=== PATIENT | male | born 1940 | race Caucasian/White ===

== ENCOUNTER 2018-01-20 02:16 | Emergency (ER) | payer MEDICARE, SELFPAY ==
[2018-01-20 02:18] VITALS: BP 134/79; PULSE 85; RESP 20; TEMP 36.4; O2SAT 97; BMI 28.4
--- NOTE | 2018-01-20 02:35 | RAD_ITS ---
STUDY: X-RAY - ABDOMEN/PELVIS REASON FOR EXAM: Male, 77 years old. eeding tube placement 30 cc gastrografin was injected into feeding tube prior to image TECHNIQUE: Single AP view of the abdomen / pelvis. COMPARISON: None. FINDINGS: Normal visualized lung bases. The feeding tube is in good position. Contrast seen in the stomach and in the duodenum. There is an unremarkable bowel gas pattern. There is no demonstrated free abdominal air. The visualized liver, spleen and kidneys are grossly normal in size and morphology. Normal soft tissue structures. Normal visualized osseous structures. RAD/Abdomen Single View (Portable) IMPRESSION: The feeding tube is in good position. Contrast seen in the stomach and in the duodenum. Electronically Signed: Michelle Howard MD at 3:33 EDT Tel , Service support ,
--- NOTE | 2018-01-20 02:40 | ED.RN ---
dr spear at bedside replacing pt feeding tube. pt tolerates well.
--- NOTE | 2018-01-20 03:23 | ED.DCSUM_ITS ---
- ER Visit Summary Date of Service: 01/20/18 Chief Complaint: [Need for PEG tube replacement] History of Present Illness: The patient is a 77 M [presents to the emergency department with complaint of PEG tube falling out half an hour ago. Patient has a history of prior stroke and is nonverbal. History comes from the patient' s . Last time patient had the PEG tube replaced was in August 2017.] Physical Examination: [HEENT-PERRLA, EOMI. Cranial nerves II through XII grossly intact. TMs clear. Mucous membranes moist. No adenopathy. Cardiovascular-regular rate and rhythm without murmur or ectopy Lungs-clear to auscultation, chest wall stable without crepitus or subcu emphysema Abdomen-normoactive bowel sounds, soft, nontender, no rebound or rigidity, no peritoneal signs. PEG tube site with small amount of blood oozing. No signs of infection. Extremities-intact ?4, normal range of motion, normal pulses, atraumatic] Test Results: [Post PEG tube replacement KUB obtained with Gastrografin shows good placement of PEG tube in stomach.] Emergency Department Course and Treatment: [PEG tube was replaced with a 20 Slovak tube.] 6 cc of normal saline used to inflate balloon. Treatment Plan: [Discharged to home in stable condition] Disposition: [Discharge] Impression: [PEG tube replacement] This note was generated with ExecNote dictation software. It may contain incorrect words, spelling, and punctuation that were not noted in review of the chart prior to signing ED Disposition - Plan for ED Patient: Chief Complaint: General Illness Referrals: Peyman Rene III, MD [Primary Care Provider] -
--- NOTE | 2018-01-20 03:23 | ED.DEP ---
ED Disposition - Plan for ED Patient: Chief Complaint: General Illness Instructions: ED G Tube Replacement Referrals: Peyman Rene III, MD [Primary Care Provider] - As Needed
[2018-01-20 03:45] VITALS: RESP 18
== END 2018-01-20 03:46 | disposition home or self-care (01) ==
PROVIDERS: Emergency Provider Emergency Medicine; Family Provider Family Medicine; PCP Family Medicine
DX: Z43.1 Encounter for attention to gastrostomy (principal); I10 Essential (primary) hypertension; E78.00 Pure hypercholesterolemia, unspecified; Z85.46 Personal history of malignant neoplasm of prostate; Z86.73 Personal history of transient ischemic attack (TIA), and cerebral infarction without residual deficits
CPT/HCPCS: 43760; 74018; 99282

== ENCOUNTER 2018-03-15 13:00 | Outpatient (RCR) | payer MEDICARE, SELFPAY ==
--- NOTE | 2018-02-01 07:27 | HP.PTEVAL ---
Patient's Visit Information ONEAL GARIBAY is a 78 year old M referred to Physical Therapy by LUIS ALFREDO Hill NP.KSMITH with a diagnosis of Muscular weakness, generalized weaknes. Date of Evaluation: 01/30/18 Physical Therapist: Odell Baird - Visit Plan Frequency: 2x /Week Duration: 6 Weeks Plan: Start with cardio equipment, BLE strengthening, gait training for safety and efficency. Progress dynamic balance activities, txs safety and bed mobility independence. Stretch HS and hip flexors to allow for increased erect posture. - Subjective Subjective: Pt. is here today for his initial evaluation with diagnosis of muscular deconditioning and generalized weakness. Pt. has a history of CVA ~11 years ago. He has expressive aphasia as well. Pt. arrives today with spouse. Spouse reports pt. has been having more and more difficulty with getting around house, getting out of bed, transfering, and general mobility. Pt. uses a rollator at home, but tends to spend the most of his time in his chair. Spouse assists with bed mobility (uses hospital bed), txs, walking, showering. Pt. has 3 steps with 1 HR to enter home and this has become more and more difficult for to assist. She has also been having trouble with the pt. completing car txs. Pt. had previously been going to gym to ride bike, but stopped as it became too hard to get out. Pt. and spouse are hopeful that pt. can increase his strength in order to become more safe and independent at home and get back to gym. - Objective POSTURE: Pt. has FH, rounded shoulder, flexed posture in stance. Pt. required walker for stability in stance. Pt. pushes walker out in front on him and stands with flexed posture, able to correct with TCing. PALAPTION: Pt. has no pain throughout bilateral LEs. Pt. has no signs of edema throughout bilateral LEs. NEUROLOGICAL: Pt. has normal sensation throughout bilateral LEs. Pt. has 1+ achilles and patellar DTR bilaterally. Pt. is able to rise on heels and toes, more difficult with rising on toes, balance aide required. ROM: Pt. has normal ankle and knee ROM without incerase in symptoms. Pt. has normal hip ROM, but has tight HS bilaterally (60deg length in 90/90 positioning bilaterally). Pt. has tight hip flexors as well, might be contributiing to flexed posture. MMT: RLE- ankle 5/5 throughout; knee- ext 4/5, flexion 4/5, hip- flexion 4/5, abd 4/5, ext 4/5. LLE- ankle 5/5 throughout; knee- 4/5 throughout; hip- 4/5 throughout. GAIT: Pt. ambulated with FWW this date. Pt. walks with AD out in front of safe in unsafe pattern. Pt. has flexed posture, decreased step length and increased hip sway. Pt. is able to correct with TCing, but unable to maintain. Pt. was able to ambulate 32ft. with Huong to complete, to assist with increasing stability and to stay within ALAINA of AD. STAIRS: Pt. was able to negotiate 3 steps with 2 HR with Huong to complete. (pt. has 3 steps with 1 HR to enter home, spouse assists). - Balance Scores Tinetti Balance Score: 6 Tinetti Gait Score: 4 Tinetti Balance & Gait Score: 10 - Goals Goal 1:: Pt. to be I with HEP. Goal Time Frame: 4-6 Weeks Goal 2:: Pt. to have increased BLE strength by 1/2 grade of all effected musculature to increase ability to complete all functional mobility. Goal Time Frame: 4-6 Weeks Goal 3:: Pt. to ambulate 50+ feet with FWW/rollator JESSICA with increased safety allowing for increased independence with in home. Goal Time Frame: 4-6 Weeks Goal 4:: Pt. to complete sit to stand and pivot transfers with AD JESSICA with improved safety allowing for increased independence in home. Goal Time Frame: 4-6 Weeks Goal 5:: Pt. to have increased tinetti assessment to 18/28 indicating reduce risk for future falls. Goal Time Frame: 4-6 Weeks Goal 6:: Pt. to complete car txs into family car with SBA/Huong to complete to increase ease of going into community. - Rehabilitation Potential Physical Therapy Diagnosis: Pt. has signs and symptoms with progressive generalized weakness of BLEs effecting his ability to complete bed mobility, transfers, gait, and functional mobility safely. Pt. would benefit from PT to increase stability in stance, increase BLE strength, progress safety and ability to ambulate. Rehabilitation Potential: Fair - Anticipated Interventions Patient/Client Instruction: Educate patient on: Condition, Plan of Care, Risk Factors, Benefits of Fitness Program For the Purpose of:: To foster healthy habits, To improve decision making, To facilitate caregiver knowledge, To improve self management, To prevent re-injury, To improve ability to perform tasks related to life management, To improve tolerance to ADL's Therapeutic Exercise to Include: Strength training, Power training, Endurance training, Balance training, Body mechanics, Postural training, Flexibilty training, Gait and locomotor training, Passive ROM, Active ROM, Dynamic Lumbar Stabilization Thank you for the opportunity to evaluate your patient. For Medicare and Medicare HMO plans, please review the plan of care and approve it. It will need to be FAXED BACK to us at [phone] for Medicare purposes. Please let me know if there are questions or concerns regarding this plan of care. Physician Signature: Date:
--- NOTE | 2018-07-19 09:45 | HP.PTDCNRP_ITS ---
HP - Discharge Summary (1) - Patient Information ONEAL GARIBAY was seen in my office for initial evaluation on 01/30/18. The following Plan of Care was established for this patient: Initial Frequency: 2x /Week Initial Duration: 6 Weeks - Anticipated Interventions Patient/Client Instruction: Educate patient on: Condition, Plan of Care, Risk Factors, Benefits of Fitness Program For the Purpose of:: To foster healthy habits, To improve decision making, To facilitate caregiver knowledge, To improve self management, To prevent re-injury , To improve ability to perform tasks related to life management, To improve tolerance to ADL's Therapeutic Exercise to Include: Strength training, Power training, Endurance training, Balance training, Body mechanics, Postural training, Flexibilty training, Gait and locomotor training, Passive ROM, Active ROM, Dynamic Lumbar Stabilization This patient was last seen in our office 03/15/18. Pertinent comments regarding their Physical therapy will appear below: Pt was seen for his general debility. He was seen for 7 visits with focus on strength of his BLEs and gait. Pt. progressed as exepcted. Pt. was to trial exercises on his own and follow up with PT if needed. Pt. has not been seen in ~ 4 months and will be DC from PT at this point in time. At this point I will be discontinuing this patient from physical therapy. I would be happy to see this patient again in the future if found appropriate by the physician. Thank you! Odell Baird
== END 2018-03-15 19:00 | disposition home or self-care (01) ==
LOC: PT 13:00
PROVIDERS: Family Provider Family Medicine; PCP Family Medicine; Visit Provider Nurse Practitioner Family
DX: R29.898 Other symptoms and signs involving the musculoskeletal system (principal); R53.1 Weakness
CPT/HCPCS: 97110; 97162; 97530

== ENCOUNTER 2018-07-28 13:04 | Observation (INO) | payer MEDICARE, SELFPAY ==
[2018-07-28 13:04] VITALS: BP 155/71; PULSE 69; RESP 20; TEMP 37.2; O2SAT 98; BMI 30.4
--- NOTE | 2018-07-28 13:36 | RAD_ITS ---
STUDY: X-RAY CHEST REASON FOR EXAM: Male, 78 years old. Weakness. TECHNIQUE: Single AP portable view of the chest. COMPARISON: 29 June 2017. FINDINGS: Right hemidiaphragm eventration is present with associated atelectasis similar to 29 June 2017 exam. There is no demonstrated pleural abnormality. Normal size heart. Normal mediastinum and daniela. Normal visualized pulmonary arteries. There is atherosclerotic calcification of the aortic arch with tortuosity. Normal visualized thoracic spine. Normal visualized ribs, clavicles, and shoulders. There is no demonstrated abnormality of the visualized soft tissue structures of the upper abdomen. RAD/Chest 1 View (Portable) IMPRESSION: Right hemidiaphragm stable eventration with otherwise no evidence of acute process in similar appearance to the 2017 exam. Electronically Signed: Teofilo Terrell DO at 14:55 EDT , Service support ,
--- NOTE | 2018-07-28 13:36 | EKG12_ITS ---
Test Reason : WEAKNESS Blood Pressure : / mmHG Vent. Rate : 071 BPM Atrial Rate : 071 BPM P-R Int : 188 ms QRS Dur : 072 ms QT Int : 416 ms P-R-T Axes : 043 -01 031 degrees QTc Int : 452 ms Normal sinus rhythm Low voltage QRS Borderline ECG Confirmed by KYE CEBALLOS, TIFFANIE ([id number]), editorial cartoonist MARIUSZ RODRIGUEZ ([id number]) on 08/01/2018 8:52:00 AM Referred By: Berhane Ortega Confirmed By:TIFFANIE FISHMAN MD
[2018-07-28 14:07] LABS: Absolute Lymphocyte Count 1.25 X10^3/ul (0.83-4.51); Absolute Neutrophil Count 5.6 X10^3/uL (2.0-7.7); Basophil# 0.01 X10^3/uL; Basophil% 0.1 % (0-1); Eosinophil# 0.54 X10^3/uL; Eosinophils% 6.5 % (0-5); Hematocrit 37.8 % (40-54); Hemoglobin 12.7 g/dl (13.0-16.5); Lymphocyte # 1.25 X10^3/ul (4.0); Lymphocyte % 15.1 % (19-41); Mean Corp Hgb Conc 33.6 g/gl (32-36); Mean Corpuscular Hgb 31.1 pg (27.0-32.0); Mean Corpuscular Volume 92.6 fL (80-94); Mean Platelet Vol. 12.3 fl (6.2-12.0); Monocyte# 0.94 X10^3/uL; Monocyte% 11.3 % (0-10); Neutrophil # 5.55 X10^3/uL (2.7-7.7); Neutrophil % 66.9 % (47-70); POSITIVE COUNT NO; POSITIVE DIFFERENTIAL NO; POSITIVE MORPHOLOGY NO; Platelet Count 80 K/mm3 (150-450); RBC Distribution Width CV 13.4 % (11.6-14.6); RBC Distribution Width SD 45.3 fl (35.1-43.9); Red Blood Count 4.08 M/mm3 (4.6-6.2); White Blood Count 8.3 K/mm3 (4.4-11.0)
[2018-07-28 14:19] LABS: Anion Gap 9 (5-15); BUN 33 mg/dL (7-18); BUN/Creat Ratio 24.3 RATIO (10-20); Calcium,Total 8.6 mg/dL (8.5-10.1); Chloride 104 mmol/L (98-107); Creatinine, Serum 1.36 mg/dL (0.70-1.30); EST Glomerular Filtration Rate 54 mL/min (>60); Est Glom Filt Rate - Afr Amer 65 mL/min (>60); Estimated Creatinine Clearance 44.01 ml/min; Glucose 171 mg/dL (74-106); Potassium 4.6 mmol/L (3.5-5.1); Sodium Level 138 mmol/L (136-145)
[2018-07-28 14:39] LABS: Mucous, Urine 0 SEEN /hpf (<or=2+); Red Blood Cells-Urine 0 SEEN /hpf (0-5); Squamous Epithelial Cells - UA 0 SEEN /hpf (0-5); White Blood Cells 0 SEEN /hpf (0-5)
[2018-07-28 14:42] LABS: Color, Urine Yellow (Yellow); Glucose, Dipstick 50 mg/dl (Normal); Ketone-Dipstick Negative (Negative); Leukocyte Esterase-Dipstick Negative /ul (Negative); Nitrite-Dipstick Negative (Negative); Occult Blood-Urine Negative /ul (Negative); Protein-Dipstick 15 mg/dl (Negative); Urine Bilirubin Dipstick Negative (Negative); Urine Clarity Clear (Clear); Urine Urobilinogen 1 mg/dl (Normal)
[2018-07-28 14:49] LABS: Bacteria RARE /hpf (None Seen)
--- NOTE | 2018-07-28 15:53 | ED.DCSUM_ITS ---
- ER Visit Summary Date of Service: 07/28/18 Chief Complaint: Generalized weakness History of Present Illness: The patient is a 78 M who presents with generalized weakness. He has a history of prior strokes. He is aphasic due to prior stroke. He normally ambulates with a walker. notes that he has had significantly increased weakness particularly over the last 2 days. He normally ambulates with a walker but has been unable to ambulate at all or perform transfers. On his way back from triage the nurse noted that it was very difficult even to get him out of the wheelchair. He has complained of some intermittent shortness of breath over the past couple of days but he denies feeling short of breath currently. He denies chest pain. He denies vomiting diarrhea fevers abdominal pain. He denies urinary symptoms. He denies headache. Physical Examination: Afebrile vitals are normal Moist mucous membranes Heart regular rate and rhythm Lungs are clear Abdomen soft Alert Generalized global weakness no focal or lateralizing neurological deficit aphasia noted Test Results: EKG shows sinus rhythm rate of 71. Labs notable for hemoglobin 12.7 platelets of 80 which appear to be near baseline. BUN is 33 and creatinine is 1.36. Urinalysis is unremarkable. Chest x-ray shows stable changes no acute process. Emergency Department Course and Treatment: Patient's workup as above is unremarkable. I do not have an explanation for his generalized weakness. We attempted to ambulate the patient here and he was able to stand up at bedside but not ambulate at all. Nursing noted that he appeared to be very unstable and was afraid the patient was going to fall. The patient family note that they have no resources such as home health care at this time. I do not believe the patient safe for discharge. He will likely need PT/OT/social work consultation. Patient to be discussed with hospitalist and admitted. Treatment Plan: [] Disposition: Admit Impression: Generalized weakness Inability to ambulate This note was generated with peerTransfer dictation software. It may contain incorrect words, spelling, and punctuation that were not noted in review of the chart prior to signing ED Disposition - Plan for ED Patient: Chief Complaint: Weakness Referrals: Peyman Rene III, MD [Primary Care Provider] -
[2018-07-28 15:55] VITALS: BP 148/71; PULSE 83; RESP 16; O2SAT 100
--- NOTE | 2018-07-28 16:10 | NURSING ---
MED JARETH WEAKNESS, INABILITY TO AMBULATE, OBS JORANDI
[2018-07-28 16:11] VITALS: BP 135/66; PULSE 76; RESP 18; TEMP 36.7; O2SAT 95
--- NOTE | 2018-07-28 16:23 | PCM.HP.STD ---
Problem List (1) Failure to thrive Status: Acute Qualifiers: Failure to thrive age range: in adult Qualified Code(s): R62.7 - Adult failure to thrive History of Present Illness Date of Admission: 07/28/18 Chief Complaint: fall. weakness. The patient is a 78 year old M presents with fall and weakness. Patient is a phasic and unable to provide any history. History obtained through the emergency room physician and the patient's . 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 Patient was just been weak since yesterday and just has not gotten better twitch the patient's brought him to the hospital. In the emergency room, patient underwent a workup with lab work, urinalysis and chest x-ray all of which were unremarkable. Patient is being brought in under observation status to be evaluated by physical therapy and potential placement. Per the patient's , there is been no new issues, no new medications, patient has tube feeds which is been unchanged and patient has a rating that well. [] Past Medical History Past Medical History (Chronic Problems): Chronic Problems (Last Reviewed 07/28/18 @ 16:25 by Berhane Ortega DO) Diabetes mellitus type 2 in nonobese (Chronic) Diabetes mellitus type 2 in nonobese (Chronic) Stroke (Chronic) Peripheral vascular disease (Chronic) Medical History: Medical History (Last Reviewed 07/28/18 @ 16:25 by Berhane Ortega DO) Feeding by G-tube Z93.1 Hyperlipidemia E78.5 Neuropathy G62.9 Nonverbal R47.01 Prostate cancer C61 Skin cancer C44.90 Stroke I63.9 x 3 Type 2 diabetes mellitus E11.9 Dx : 1986 Last exacerbation : DKA : never Hypoglycemic episode : years ago ER visit : years ago Vision problems H54.7 HTN (hypertension) I10 Allergies sulfamethoxazole [From Bactrim] Allergy (Verified 07/28/18 13:06) Other trimethoprim [From Bactrim] Allergy (Verified 07/28/18 13:06) Other adhesive tape Adverse Reaction (Verified 07/28/18 13:06) Rash Home Medications: Ambulatory Orders Medication Instructions Recorded Aspirin [Aspirin, Baby] 81 mg GT QODAY 03/26/14 Lovastatin [Mevacor] 10 mg GT DAILY 03/26/14 calcium carbonate 500 mg (1,250 1 tab GT BID 07/23/18 mg)-vitamin D3 200 unit tablet lisinopril 5 mg tablet 5 mg GT DAILY 07/23/18 metformin 500 mg tablet 500 mg GT DAILY tab 07/23/18 Insulin Glargine,Hum.rec.anlog 38 units SC QHS 07/28/18 [Zebshilpidarshan Rodriguezmenafior] Jevity 1.5 [Jevity 1.5] 1 bottle GT BID 07/28/18 Melatonin 5 mg GT DAILY 07/28/18 Surgical History: Surgical History (Last Reviewed 07/28/18 @ 16:25 by Berhane Ortega DO) H/O colonoscopy Z98.890 Surgical History: - - PEG tube insertion, angioplasty left leg, eye surgery secondary to diabetes Psychiatric History: No pertinent psych hx Smoking Status: Never smoker - *Family History Maternal Family History: Family History (Last Reviewed 07/28/18 @ 16:25 by Berhane Ortega DO) Son Hypertension Mother Tuberculosis History Items: No pertinent history Paternal Family History: Family History (Last Reviewed 07/28/18 @ 16:25 by Berhane Ortega DO) Son Hypertension Mother Tuberculosis History Items: No pertinent history Sibling Family History: Family History (Last Reviewed 07/28/18 @ 16:25 by Berhane Ortega DO) Son Hypertension Mother Tuberculosis History Items: No pertinent history Review of Systems Unable to obtain accurate/complete ROS d/t: Unable to obtain due to patient's a aphasia. VTE Information - Inpt Only VTE Present on Admission: No VTE Pharm Prophylaxis ordered?: Yes Patient Problems: Active and Suspected Problems (Last Reviewed 07/28/18 @ 16:25 by Berhane Ortega DO) Failure to thrive (Acute) - Physical Exam General: Alert, Cooperative, - - A phasic. Grunting. HEENT: Atraumatic, Normocephalic, - - No icterus Neck: No Nodes, Thyroid Normal Size and Texture Lungs: Normal air movement, - - Coarse upper respiratory breath sounds Cardiovascular: Regular rate, Regular Rhythm, Normal S1, Normal S2, No murmurs Abdomen: Bowel Sounds Present, Soft, Non Tender Extremities: No edema, No Calf Tenderness Skin: - - Does have a superficial abrasion on his Musculoskeletal: No Tenderness to Palpation of Joints or Extremities, No Muscle Wasting Psych/Mental Status: Anxious Vital Signs Temp Pulse Resp BP Pulse Ox 36.7 C 76 18 135/66 H 95 07/28/18 16:11 07/28/18 16:11 07/28/18 16:11 07/28/18 16:11 07/28/18 16:11 Oxygen Delivery Method Room Air Weight: 90.718 kg Body Mass Index (BMI) 30.4 Finger Stick Blood Glucose 222 Laboratory Tests Past 24 Hrs 07/28/18 07/28/18 07/28/18 13:58 13:58 14:30 WBC 8.3 RBC 4.08 L Hgb 12.7 L Hct 37.8 L MCV 92.6 MCH 31.1 MCHC 33.6 RDW 13.4 RDW Differential 45.3 H Plt Count 80 L MPV 12.3 H Immature Gran % (Auto) 0.100 Neut % (Auto) 66.9 Lymph % (Auto) 15.1 L [place] % (Auto) 11.3 H Eos % (Auto) 6.5 H Baso % (Auto) 0.1 Absolute Neuts (auto) 5.6 Absolute Lymphs (auto) 1.25 Total Counted Not Reportable Sodium 138 Potassium 4.6 Chloride 104 Carbon Dioxide 25.0 Anion Gap 9 BUN 33 H Creatinine 1.36 H Estim Creat Clear Calc 44.01 Est GFR (MDRD) Af Amer 65 Est GFR (MDRD) Non-Af 54 L BUN/Creatinine Ratio 24.3 H Glucose 171 H Calcium 8.6 Urine Color Yellow Urine Clarity Clear Urine pH 7.0 Ur Specific [place] 1.010 Urine Protein 15 H Urine Glucose (UA) 50 H Urine Ketones Negative Urine Occult Blood Negative Urine Nitrite Negative Urine Bilirubin Negative Urine Urobilinogen 1 H Ur Leukocyte Esterase Negative Urine RBC 0 SEEN Urine WBC 0 SEEN Ur Squamous Epith Cells 0 SEEN Urine Bacteria RARE Urine Mucus 0 SEEN Assessment/Plan All Active Problems (Last Reviewed 07/28/18 @ 16:25 by Berhane Ortega DO) Failure to thrive (Acute) Hematochezia (Acute) medical management (Acute) 1. Failure to thrive No obvious medical etiology is contributing to his symptoms at this time Discussed with the patient's , patient will be brought in under observation status and will have physical and occupational therapy evaluate him Case management and social worker aide to offer further assistance as well 2. History of stroke Chronically a phasic 3. Diabetes mellitus type 2: Continue with metformin. Sliding scale insulin 4. DVT prophylaxis with Lovenox 5. Advanced care planning: Patient's states that he is never fully discussed CODE STATUS with her. I implored her to further discuss that as they are able. Therefore patient is full CODE STATUS. Code Visit OBSV E&M: [id number] Initial observation care L2
--- NOTE | 2018-07-28 16:28 | HP.PCM_ITS ---
Problem List (1) Failure to thrive Status: Acute Qualifiers: Failure to thrive age range: in adult Qualified Code(s): R62.7 - Adult failure to thrive History of Present Illness Date of Admission: 07/28/18 Chief Complaint: fall. weakness. The patient is a 78 year old M presents with fall and weakness. Patient is a phasic and unable to provide any history. History obtained through the emergency room physician and the patient's . 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 Patient was just been weak since yesterday and just has not gotten better twitch the patient 's brought him to the hospital. In the emergency room, patient underwent a workup with lab work, urinalysis and chest x-ray all of which were unremarkable. Patient is being brought in under observation status to be evaluated by physical therapy and potential placement. Per the patient's , there is been no new issues, no new medications, patient has tube feeds which is been unchanged and patient has a rating that well. [] Past Medical History Past Medical History (Chronic Problems): Chronic Problems (Last Reviewed 07/28/18 @ 16:25 by Berhane Ortega DO) Diabetes mellitus type 2 in nonobese (Chronic) Diabetes mellitus type 2 in nonobese (Chronic) Stroke (Chronic) Peripheral vascular disease (Chronic) Medical History: Medical History (Last Reviewed 07/28/18 @ 16:25 by Berhane Ortega DO) Feeding by G-tube Z93.1 Hyperlipidemia E78.5 Neuropathy G62.9 Nonverbal R47.01 Prostate cancer C61 Skin cancer C44.90 Stroke I63.9 x 3 Type 2 diabetes mellitus E11.9 Dx : 1986 Last exacerbation : DKA : never Hypoglycemic episode : years ago ER visit : years ago Vision problems H54.7 HTN (hypertension) I10 Allergies sulfamethoxazole [From Bactrim] Allergy (Verified 07/28/18 13:06) Other trimethoprim [From Bactrim] Allergy (Verified 07/28/18 13:06) Other adhesive tape Adverse Reaction (Verified 07/28/18 13:06) Rash Home Medications: Ambulatory Orders Medication Instructions Recorded Aspirin [Aspirin, Baby] 81 mg GT QODAY 03/26/14 Lovastatin [Mevacor] 10 mg GT DAILY 03/26/14 calcium carbonate 500 mg (1,250 1 tab GT BID 07/23/18 mg)-vitamin D3 200 unit tablet lisinopril 5 mg tablet 5 mg GT DAILY 07/23/18 metformin 500 mg tablet 500 mg GT DAILY tab 07/23/18 Insulin Glargine,Hum.rec.anlog 38 units SC QHS 07/28/18 [Zebshilpidarshan Rodriguezmenafior] Jevity 1.5 [Jevity 1.5] 1 bottle GT BID 07/28/18 Melatonin 5 mg GT DAILY 07/28/18 Surgical History: Surgical History (Last Reviewed 07/28/18 @ 16:25 by Berhane Ortega DO) H/O colonoscopy Z98.890 Surgical History: - - PEG tube insertion, angioplasty left leg, eye surgery secondary to diabetes Psychiatric History: No pertinent psych hx Smoking Status: Never smoker - *Family History Maternal Family History: Family History (Last Reviewed 07/28/18 @ 16:25 by Berhane Ortega DO) Son Hypertension Mother Tuberculosis History Items: No pertinent history Paternal Family History: Family History (Last Reviewed 07/28/18 @ 16:25 by Berhane Ortega DO) Son Hypertension Mother Tuberculosis History Items: No pertinent history Sibling Family History: Family History (Last Reviewed 07/28/18 @ 16:25 by Berhane Ortega DO) Son Hypertension Mother Tuberculosis History Items: No pertinent history Review of Systems Unable to obtain accurate/complete ROS d/t: Unable to obtain due to patient's a aphasia. VTE Information - Inpt Only VTE Present on Admission: No VTE Pharm Prophylaxis ordered?: Yes Patient Problems: Active and Suspected Problems (Last Reviewed 07/28/18 @ 16:25 by Berhane Ortega DO) Failure to thrive (Acute) - Physical Exam General: Alert, Cooperative, - - A phasic. Grunting. HEENT: Atraumatic, Normocephalic, - - No icterus Neck: No Nodes, Thyroid Normal Size and Texture Lungs: Normal air movement, - - Coarse upper respiratory breath sounds Cardiovascular: Regular rate, Regular Rhythm, Normal S1, Normal S2, No murmurs Abdomen: Bowel Sounds Present, Soft, Non Tender Extremities: No edema, No Calf Tenderness Skin: - - Does have a superficial abrasion on his Musculoskeletal: No Tenderness to Palpation of Joints or Extremities, No Muscle Wasting Psych/Mental Status: Anxious Vital Signs Temp Pulse Resp BP Pulse Ox 36.7 C 76 18 135/66 H 95 07/28/18 16:11 07/28/18 16:11 07/28/18 16:11 07/28/18 16:11 07/28/18 16:11 Oxygen Delivery Method Room Air Weight: 90.718 kg Body Mass Index (BMI) 30.4 Finger Stick Blood Glucose 222 Laboratory Tests Past 24 Hrs 07/28/18 07/28/18 07/28/18 13:58 13:58 14:30 WBC 8.3 RBC 4.08 L Hgb 12.7 L Hct 37.8 L MCV 92.6 MCH 31.1 MCHC 33.6 RDW 13.4 RDW Differential 45.3 H Plt Count 80 L MPV 12.3 H Immature Gran % (Auto) 0.100 Neut % (Auto) 66.9 Lymph % (Auto) 15.1 L [place] % (Auto) 11.3 H Eos % (Auto) 6.5 H Baso % (Auto) 0.1 Absolute Neuts (auto) 5.6 Absolute Lymphs (auto) 1.25 Total Counted Not Reportable Sodium 138 Potassium 4.6 Chloride 104 Carbon Dioxide 25.0 Anion Gap 9 BUN 33 H Creatinine 1.36 H Estim Creat Clear Calc 44.01 Est GFR (MDRD) Af Amer 65 Est GFR (MDRD) Non-Af 54 L BUN/Creatinine Ratio 24.3 H Glucose 171 H Calcium 8.6 Urine Color Yellow Urine Clarity Clear Urine pH 7.0 Ur Specific [place] 1.010 Urine Protein 15 H Urine Glucose (UA) 50 H Urine Ketones Negative Urine Occult Blood Negative Urine Nitrite Negative Urine Bilirubin Negative Urine Urobilinogen 1 H Ur Leukocyte Esterase Negative Urine RBC 0 SEEN Urine WBC 0 SEEN Ur Squamous Epith Cells 0 SEEN Urine Bacteria RARE Urine Mucus 0 SEEN Assessment/Plan All Active Problems (Last Reviewed 07/28/18 @ 16:25 by Berhane Ortega DO) Failure to thrive (Acute) Hematochezia (Acute) medical management (Acute) 1. Failure to thrive * No obvious medical etiology is contributing to his symptoms at this time * Discussed with the patient's , patient will be brought in under observation status and will have physical and occupational therapy evaluate him * Case management and social human services assistants to offer further assistance as well 2. History of stroke * Chronically a phasic 3. Diabetes mellitus type 2: Continue with metformin. Sliding scale insulin 4. DVT prophylaxis with Lovenox 5. Advanced care planning: Patient's states that he is never fully discussed CODE STATUS with her. I implored her to further discuss that as they are able. Therefore patient is full CODE STATUS. Code Visit OBSV E&M: 66080 Initial observation care L2
--- NOTE | 2018-07-28 16:55 | NURSING ---
312 OBS FTT MAHENDRA
[2018-07-28 17:40] VITALS: BMI 29.4
[2018-07-28 18:35] LABS: Bedside Glucose 118 mg/dL (70-110)
[2018-07-28 21:37] VITALS: BP 170/87; PULSE 74; RESP 20; TEMP 36.3; O2SAT 100
[2018-07-28] MEDS: Jevity 1.5 1,000 ML 80 ML GT (21:51)
[2018-07-28] MEDS: MELATONIN 10 MG TABLET 5 MG GT (22:12)
[2018-07-28] MEDS: Atorvastatin Calcium 10 MG Tablet 5 MG GT (22:12)
[2018-07-28 22:30] LABS: Bedside Glucose 92 mg/dL (70-110)
[2018-07-29 00:30] VITALS: BP 133/60
[2018-07-29 00:31] LABS: Bedside Glucose 118 mg/dL (70-110)
[2018-07-29 03:15] VITALS: BP 154/75; PULSE 71; RESP 20; TEMP 36.5; O2SAT 96
[2018-07-29] MEDS: Insulin Lispro 100 UNIT/ML INSULN.PEN SQ (06:14)
[2018-07-29] MEDS: 0.9% NaCl Peripheral Flush Adult/Peds IV (06:14)
[2018-07-29 06:25] LABS: Bedside Glucose 167 mg/dL (70-110)
[2018-07-29 08:19] VITALS: BP 136/67; PULSE 85; RESP 18; TEMP 36.7; O2SAT 98
[2018-07-29] MEDS: Calcium Carb/Vitamin D 1 TABLET Tablet GT ×2 (08:29→17:48)
[2018-07-29] MEDS: Lisinopril 5 MG Tablet GT (10:58)
[2018-07-29] MEDS: Enoxaparin 40 MG/0.4 ML Syringe SC (10:58)
[2018-07-29 12:15] LABS: Bedside Glucose 149 mg/dL (70-110)
--- NOTE | 2018-07-29 14:56 | PN_ITS ---
Patient Problems: Active and Suspected Problems (Last Reviewed 07/28/18 @ 16:25 by Berhane Ortega DO) Failure to thrive (Acute) Subjective: Seen and examined. Patient has aphasia for last 30 years. He had 3 strokes in the past. Patient was evaluated by physical therapist and he walked on walker. Vitals/I&O's: Vital Signs Temp Pulse Resp BP Pulse Ox 98.0 F 85 18 136/67 H 98 07/29/18 08:19 07/29/18 08:19 07/29/18 08:19 07/29/18 08:19 07/29/18 08:19 Oxygen Delivery Method Room Air Weight: 193 lb 6.4 oz Body Mass Index (BMI) 29.4 Intake and Output for Last 24 Hours 07/27/18 07/28/18 07/29/18 23:59 23:59 23:59 Intake Total 60 / 60 810 / 810 Balance 60 / 60 810 / 810 General: Alert, Oriented x3, Cooperative HEENT: Atraumatic, PERRLA, EOMI, Normocephalic Neck: Supple, No JVD, Negative Carotid Bruits Lungs: Clear to auscultation, No rhonchi, No wheeze, Diminished Cardiovascular: Regular rate, Regular Rhythm, Normal S1, Normal S2, No murmurs Abdomen: Bowel Sounds Present, Soft, Non Tender Extremities: No edema, Capillary Refill Less than 3 Seconds Skin: No rashes, No breakdown Musculoskeletal: No Tenderness to Palpation of Joints or Extremities, Arthritic Changes Neurological: Cranial nerves II-XII grossly intact, - - Mild weakness of lower extremities. Power 4+/5. Complete motor/Broca's aphasia although he can understand the speech follow the command. Psych/Mental Status: Normal Affect, Appropriate Laboratory Results 07/28/18 18:07: POC Glucose 118 H 07/28/18 22:11: POC Glucose 92 07/29/18 00:27: POC Glucose 118 H 07/29/18 06:11: POC Glucose 167 H 07/29/18 11:31: POC Glucose 149 H Current Medications Aspirin (Aspirin, Baby) 81 mg GT QODAY@0800 [facility] Atorvastatin Calcium (Lipitor) 5 mg GT DAILY@2200 [facility] Last Admin: 07/28/18 22:12 Dose: 5 mg Calcium/Vitamin D (Os-Ricky 500mg + D) [facility] Last Admin: 07/29/18 08:29 Dose: 1 tablet Dextrose (D50w Syringe) 0 gm IV X1 PRN; Protocol PRN Reason: Hypoglycemia Enoxaparin Sodium (Lovenox) 40 mg SC DAILY@1000 [facility] Last Admin: 07/29/18 10:58 Dose: 40 mg Glucagon () 1 mg IM .X1 PRN PRN Reason: Hypoglycemia Enteral Nutritional Formula (Jevity 1.5) 1,000 mls @ 80 mls/hr GT .[id number] [facility] Last Admin: 07/28/18 21:51 Dose: 80 mls/hr Insulin Glargine (Lantus ([facility])) 38 units SC QHS [facility] Last Admin: 07/28/18 22:00 Dose: Not Given Insulin Human Lispro (Humalog Kwikpen ([facility])) 0 unit SQ Q6 [facility] PRN Reason: Protocol Last Admin: 07/29/18 11:32 Dose: Not Given Lisinopril (Zestril) 5 mg GT DAILY [facility] Last Admin: 07/29/18 10:58 Dose: 5 mg Magnesium Hydroxide (Milk Of Magnesia) 30 ml PO DAILY PRN PRN PRN Reason: Constipation Melatonin (Melatonin) 5 mg GT DAILY@2200 [facility] Last Admin: 07/28/18 22:12 Dose: 5 mg Metformin HCl (Glucophage) [facility] Last Admin: 07/29/18 08:29 Dose: 500 mg Sodium Chloride () 5 - 30 ml IV UD PRN PRN Reason: SALINE FLUSH Last Admin: 07/29/18 06:14 Dose: 10 ml Medical Necessity - Tobacco Use Smoking Status: Never smoker Assessment/Plan All Active Problems (Last Reviewed 07/28/18 @ 16:25 by Berhane Ortega DO) Failure to thrive (Acute) Hematochezia (Acute) medical management (Acute) There is a 78 gentleman with history of stroke, complete aphasia for about 13 years was admitted with fall and weakness. Is gradually going through failure to thrive and unable to take care of himself. 1. Failure to thrive * Gradual process * PT and OT * Case management and social worker aide to offer further assistance as well 2. History of stroke * Chronically aphasic 3. Diabetes mellitus type 2: Continue with metformin. Sliding scale insulin 4. DVT prophylaxis with Lovenox 5. Advanced care planning: Patient's states that he is never fully discussed CODE STATUS with her. I implored her to further discuss that as they are able. Therefore patient is full CODE STATUS. Code Visit Inpatient E&M: 06414 Subs Hosp L2
[2018-07-29 15:14] VITALS: BP 120/67; PULSE 73; RESP 18; TEMP 36.7; O2SAT 96
[2018-07-29 18:11] LABS: Bedside Glucose 133 mg/dL (70-110)
[2018-07-29 21:12] VITALS: BP 132/77; PULSE 77; RESP 20; TEMP 36.7; O2SAT 95
[2018-07-29 21:15] VITALS: O2SAT 95
[2018-07-29] MEDS: Jevity 1.5 1,000 ML 80 ML GT (21:34)
[2018-07-29] MEDS: MELATONIN 10 MG TABLET 5 MG GT (21:35)
[2018-07-29] MEDS: Atorvastatin Calcium 10 MG Tablet 5 MG GT (21:35)
[2018-07-29 22:05] LABS: Bedside Glucose 121 mg/dL (70-110)
[2018-07-30] MEDS: Insulin Lispro 100 UNIT/ML INSULN.PEN SQ (00:32)
[2018-07-30 00:41] LABS: Bedside Glucose 175 mg/dL (70-110)
[2018-07-30 03:12] VITALS: BP 129/64; PULSE 65; RESP 20; TEMP 37.4; O2SAT 100
[2018-07-30 06:01] LABS: Bedside Glucose 89 mg/dL (70-110)
[2018-07-30 07:58] VITALS: BP 129/57; PULSE 67; RESP 18; TEMP 37.3; O2SAT 96
[2018-07-30] MEDS: Lisinopril 5 MG Tablet GT (09:28)
[2018-07-30] MEDS: Calcium Carb/Vitamin D 1 TABLET Tablet GT (09:28)
[2018-07-30] MEDS: Aspirin 81 MG TAB.CHEW GT (09:29)
[2018-07-30] MEDS: Enoxaparin 40 MG/0.4 ML Syringe SC (09:32)
[2018-07-30 11:35] VITALS: BP 114/59; PULSE 70; RESP 20; TEMP 36.7; O2SAT 96
[2018-07-30 11:55] LABS: Bedside Glucose 140 mg/dL (70-110)
[2018-07-30 13:46] VITALS: BP 113/66; PULSE 65; RESP 18; TEMP 36.8; O2SAT 96
--- NOTE | 2018-07-30 13:56 | CASEMGMT ---
LAURIE BANKS has attempted to call patient's several times to discuss discharge plans. No answer, multiple messages left with return contact information. Will continue to attempt to contact .
--- NOTE | 2018-07-30 14:09 | PN_ITS ---
Patient Problems: Active and Suspected Problems (Last Reviewed 07/28/18 @ 16:25 by Berhane Ortega DO) Failure to thrive (Acute) Subjective: Patient is on tube feed through PEG tube. Vitals/I&O's: Vital Signs Temp Pulse Resp BP Pulse Ox 98.2 F 65 18 113/66 96 07/30/18 13:46 07/30/18 13:46 07/30/18 13:46 07/30/18 13:46 07/30/18 13:46 Oxygen Delivery Method Room Air Weight: 193 lb 5.526 oz Body Mass Index (BMI) 29.4 Intake and Output for Last 24 Hours 07/28/18 07/29/18 07/30/18 23:59 23:59 23:59 Intake Total 1717 Balance 1717 General: Alert, Oriented x3, Cooperative HEENT: Atraumatic, PERRLA, EOMI, Normocephalic Neck: Supple, No JVD, Negative Carotid Bruits Lungs: Clear to auscultation, Normal air movement Cardiovascular: Regular rate, Normal S1, Normal S2, No murmurs Abdomen: Bowel Sounds Present, Soft, Non Tender Extremities: No edema, Capillary Refill Less than 3 Seconds Skin: No rashes, No breakdown Musculoskeletal: No Tenderness to Palpation of Joints or Extremities, Arthritic Changes, Muscle Wasting Neurological: Cranial nerves II-XII grossly intact, - - Aphasic Broca's aphasia Psych/Mental Status: Normal Affect, Appropriate Laboratory Results 07/29/18 17:46: POC Glucose 133 H 07/29/18 21:33: POC Glucose 121 H 07/30/18 00:31: POC Glucose 175 H 07/30/18 05:53: POC Glucose 89 07/30/18 11:48: POC Glucose 140 H Current Medications Aspirin (Aspirin, Baby) 81 mg GT QODAY@0800 [facility] Last Admin: 07/30/18 09:29 Dose: 81 mg Atorvastatin Calcium (Lipitor) 5 mg GT DAILY@2200 [facility] Last Admin: 07/29/18 21:35 Dose: 5 mg Calcium/Vitamin D (Os-Ricky 500mg + D) 1 tablet GT BIDCM [facility] Last Admin: 07/30/18 09:28 Dose: 1 tablet Dextrose (D50w Syringe) 0 gm IV X1 PRN; Protocol PRN Reason: Hypoglycemia Enoxaparin Sodium (Lovenox) 40 mg SC DAILY@1000 [facility] Last Admin: 07/30/18 09:32 Dose: 40 mg Glucagon () 1 mg IM .X1 PRN PRN Reason: Hypoglycemia Enteral Nutritional Formula (Jevity 1.5) 1,000 mls @ 80 mls/hr GT .[id number] [facility] Last Admin: 07/30/18 10:46 Dose: Not Given Insulin Glargine (Lantus (Bk)) 38 units SC QHS [facility] Last Admin: 07/29/18 21:34 Dose: 38 u Insulin Human Lispro (Humalog Kwikpen ([facility])) 0 unit SQ Q6 [facility] PRN Reason: Protocol Last Admin: 07/30/18 11:58 Dose: Not Given Lisinopril (Zestril) 5 mg GT DAILY [facility] Last Admin: 07/30/18 09:28 Dose: 5 mg Magnesium Hydroxide (Milk Of Magnesia) 30 ml PO DAILY PRN PRN PRN Reason: Constipation Melatonin (Melatonin) 5 mg GT DAILY@2200 [facility] Last Admin: 07/29/18 21:35 Dose: 5 mg Metformin HCl (Glucophage) 500 mg GT DAILYCM [facility] Last Admin: 07/30/18 09:29 Dose: 500 mg Sodium Chloride () 5 - 30 ml IV UD PRN PRN Reason: SALINE FLUSH Last Admin: 07/29/18 06:14 Dose: 10 ml Medical Necessity - Tobacco Use Smoking Status: Never smoker Assessment/Plan All Active Problems (Last Reviewed 07/28/18 @ 16:25 by Berhane Ortega DO) Failure to thrive (Acute) Hematochezia (Acute) medical management (Acute) There is a 78 gentleman with history of stroke, complete aphasia for about 13 years was admitted with fall and weakness. Is gradually going through failure to thrive and unable to take care of himself. 1. Failure to thrive * Gradual process * PT and OT * Case management and social worker clinical to offer further assistance as well 2. History of stroke * Chronically aphasic * Tube feed through PEG tube 3. Diabetes mellitus type 2: Continue with metformin. Sliding scale insulin 4. DVT prophylaxis with Lovenox 5. Advanced care planning: Patient's states that he is never fully discussed CODE STATUS with her. I implored her to further discuss that as they are able. Therefore patient is full CODE STATUS. Code Visit Inpatient E&M: 25655 Subs Hosp L2
--- NOTE | 2018-07-30 14:53 | PCM.DC ---
- Discharge Diagnoses Current Active Problems: Current Active and Chronic Problems (Last Reviewed 07/28/18 @ 16:25 by Berhane Ortega DO) Failure to thrive (Acute) You will use the following diet at home:: Other - On tube feed, Jevity 1.5. Weight Bearing Status: Weight bearing as tolerated Call your doctor if you observe: Fever of 101 or Higher, Numbness or Tingling, Inability to urinate, Inability to have a bowel movement, Shortness of breath Allergies/Adverse Reactions: Allergies sulfamethoxazole [From Bactrim] Allergy (Verified 07/28/18 13:06) Other trimethoprim [From Bactrim] Allergy (Verified 07/28/18 13:06) Other adhesive tape Adverse Reaction (Verified 07/28/18 13:06) Rash Medications to take at Discharge Aspirin [Aspirin, Baby] 81 mg GT QODAY 03/26/14 Lovastatin [Mevacor] 10 mg GT QHS 03/26/14 calcium carbonate 500 mg (1,250 mg)-vitamin D3 200 unit tablet 1 tab GT BID 07/23/18 lisinopril 5 mg tablet 5 mg GT DAILY 07/23/18 metformin 500 mg tablet 500 mg GT DAILY tab 07/23/18 Insulin Glargine,Hum.rec.anlog [Toujeo Solostar] 38 units SC QHS 07/28/18 Jevity 1.5 1 bottle GT BID 07/28/18 Melatonin 5 mg GT QHS 07/28/18 Primary Care Physician: Peyman Rene III, MD [Primary Care Provider] - Please follow up with your Primary Care Physician in: in 2 weeks Test Results: Test results from this visit will be discussed in further detail at your follow-up appointment, if applicable. Please Follow Up With: Georges Hooper MD When: for recurrent stroke in 4 weeks
--- NOTE | 2018-07-30 14:55 | PCM.DC.SUM ---
Discharge Date and Diagnosis - Problem List Patient Problems: Active and Suspected Problems (Last Reviewed 07/28/18 @ 16:25 by Berhane Ortega DO) Failure to thrive (Acute) Date of Admission: 07/28/18 Date of Discharge: 07/30/18 - Primary Discharge Diagnosis Active and Suspected Problems (Last Reviewed 07/28/18 @ 16:25 by Berhane Ortega DO) Failure to thrive (Acute) - Secondary Discharge Diagnosis Chronic Problems (Last Reviewed 07/28/18 @ 16:25 by Berhane Ortega DO) Diabetes mellitus type 2 in nonobese (Chronic) Diabetes mellitus type 2 in nonobese (Chronic) Stroke (Chronic) Peripheral vascular disease (Chronic) Hospital Course and Treatment Operations: None Summary of Care Provided: This is a 78 gentleman with history of stroke, complete aphasia for about 13 years was admitted with fall and weakness. Patient is gradually going through failure to thrive and unable to take care of himself. 1. Failure to thrive Gradual process PT and OT Case management and social work therapist to offer further assistance as well 2. History of stroke Chronically aphasic Tube feed through PEG tube 3. Diabetes mellitus type 2: Continue with metformin. Sliding scale insulin. And is on long-acting insulin. Blood sugars controlled. Blood sugar has been 102 1 40 mg/dL. 4. DVT prophylaxis with Lovenox 5. Advanced care planning: Patient's states that he is never fully discussed CODE STATUS with her. I implored her to further discuss that as they are able. Therefore patient is full CODE STATUS. Patient walked on walker 80 feet with minimal to 1 assistant professor of sociology. Patient has a power chair and walker at home. His take care of him at home. She agreed for taking him home. Home health customer care team coach service was started by credit department manager. Discharge follow-up instructions discussed with the patient. Discharge medication reconciliation done. [] Weight Bearing Status: Weight bearing as tolerated Call your doctor if you observe: Fever of 101 or Higher, Numbness or Tingling, Inability to urinate, Inability to have a bowel movement, Shortness of breath Home Medications: Medications to take at Discharge Aspirin [Aspirin, Baby] 81 mg GT QODAY 03/26/14 Lovastatin [Mevacor] 10 mg GT QHS 03/26/14 calcium carbonate 500 mg (1,250 mg)-vitamin D3 200 unit tablet 1 tab GT BID 07/23/18 lisinopril 5 mg tablet 5 mg GT DAILY 07/23/18 metformin 500 mg tablet 500 mg GT DAILY tab 07/23/18 Insulin Glargine,Hum.rec.anlog [Gerber Boles] 38 units SC QHS 07/28/18 Jevity 1.5 1 bottle GT BID 07/28/18 Melatonin 5 mg GT QHS 07/28/18 Primary Care Physician: Peyman Rene III, MD [Primary Care Provider] - Please follow up with your Primary Care Physician in: in 2 weeks Please Follow Up With: Georges Hooper MD When: for recurrent stroke in 4 weeks Medical Necessity - Tobacco Use Smoking Status: Never smoker Meaningful Use Info Meaningful Use Diagnoses (Choose all that apply): None applicable Code Visit Inpatient E&M: 80771 Disch Hosp
--- NOTE | 2018-07-30 14:59 | DS.PCM_ITS ---
Discharge Date and Diagnosis - Problem List Patient Problems: Active and Suspected Problems (Last Reviewed 07/28/18 @ 16:25 by Berhane Ortega DO) Failure to thrive (Acute) Date of Admission: 07/28/18 Date of Discharge: 07/30/18 - Primary Discharge Diagnosis Active and Suspected Problems (Last Reviewed 07/28/18 @ 16:25 by Berhane Ortega DO) Failure to thrive (Acute) - Secondary Discharge Diagnosis Chronic Problems (Last Reviewed 07/28/18 @ 16:25 by Berhane Ortega DO) Diabetes mellitus type 2 in nonobese (Chronic) Diabetes mellitus type 2 in nonobese (Chronic) Stroke (Chronic) Peripheral vascular disease (Chronic) Hospital Course and Treatment Operations: None Summary of Care Provided: This is a 78 gentleman with history of stroke, complete aphasia for about 13 years was admitted with fall and weakness. Patient is gradually going through failure to thrive and unable to take care of himself. 1. Failure to thrive * Gradual process * PT and OT * Case management and social worker health services to offer further assistance as well 2. History of stroke * Chronically aphasic * Tube feed through PEG tube 3. Diabetes mellitus type 2: Continue with metformin. Sliding scale insulin. And is on long-acting insulin. Blood sugars controlled. Blood sugar has been 102 1 40 mg/dL. 4. DVT prophylaxis with Lovenox 5. Advanced care planning: Patient's states that he is never fully discussed CODE STATUS with her. I implored her to further discuss that as they are able. Therefore patient is full CODE STATUS. Patient walked on walker 80 feet with minimal to 1 marketing administrative assistant. Patient has a power chair and walker at home. His take care of him at home. She agreed for taking him home. Home health managed care nurse service was started by manager supplier. Discharge follow-up instructions discussed with the patient. Discharge medication reconciliation done. [] Weight Bearing Status: Weight bearing as tolerated Call your doctor if you observe: Fever of 101 or Higher, Numbness or Tingling, Inability to urinate, Inability to have a bowel movement, Shortness of breath Home Medications: Medications to take at Discharge Aspirin [Aspirin, Baby] 81 mg GT QODAY 03/26/14 Lovastatin [Mevacor] 10 mg GT QHS 03/26/14 calcium carbonate 500 mg (1,250 mg)-vitamin D3 200 unit tablet 1 tab GT BID lisinopril 5 mg tablet 5 mg GT DAILY 07/23/18 metformin 500 mg tablet 500 mg GT DAILY tab 07/23/18 Insulin Glargine,Hum.rec.anlog [Gerber Boles] 38 units SC QHS 07/28/18 Jevity 1.5 1 bottle GT BID 07/28/18 Melatonin 5 mg GT QHS 07/28/18 Primary Care Physician: Peyman Rene III, MD [Primary Care Provider] - Please follow up with your Primary Care Physician in: in 2 weeks Please Follow Up With: Georges Hooper MD When: for recurrent stroke in 4 weeks Medical Necessity - Tobacco Use Smoking Status: Never smoker Meaningful Use Info Meaningful Use Diagnoses (Choose all that apply): None applicable Code Visit Inpatient E&M: 30384 Disch Hosp
--- NOTE | 2018-07-30 15:07 | CASEMGMT ---
returned call. LAURIE BANKS discussed discharge planning with . states that she feel comfortable taking patient home since he walked 80ft with therapy. LAURIE BANKS sent referral to [facility] who is in-network with patient's insurance, awaiting acceptance. LAURIE BANKS will continue to follow this patient and plan for a safe discharge.
[2018-07-30 16:31] LABS: Bedside Glucose 131 mg/dL (70-110)
== END 2018-07-30 16:44 | disposition home health service (06) ==
LOC: ED 15:01 → MS3 17:07
PROVIDERS: Emergency Provider Emergency Medicine; Family Provider Family Medicine; PCP Family Medicine; Visit Provider Internal Medicine
DX: R62.7 Adult failure to thrive (principal); E11.51 Type 2 diabetes mellitus with diabetic peripheral angiopathy without gangrene; I69.320 Aphasia following cerebral infarction; R06.02 Shortness of breath; E78.5 Hyperlipidemia, unspecified; I10 Essential (primary) hypertension; Z85.46 Personal history of malignant neoplasm of prostate; Z85.828 Personal history of other malignant neoplasm of skin; E11.40 Type 2 diabetes mellitus with diabetic neuropathy, unspecified; Z79.899 Other long term (current) drug therapy; Z79.82 Long term (current) use of aspirin
CPT/HCPCS: 71045; 80048; 81001; 82962; 85025; 93005; 96372; 97162; 97165; 97530; 97802; 99218; 99283; P9612; A4216; G0378

== ENCOUNTER 2019-04-02 11:59 | Observation (INO) | payer MEDICARE, SELFPAY ==
[2019-04-02] VITALS (10 sets, daily range): BP systolic 113–175; BP diastolic 65–79; PULSE 6–82; RESP 16–18; TEMP 36.6–36.8; O2SAT 93–98; BMI 29.7; BMI 28.5
[2019-04-02 12:45] LABS: Bedside Glucose 229 mg/dL (70-110)
--- NOTE | 2019-04-02 12:50 | CT_ITS ---
STUDY: CT BRAIN WITHOUT CONTRAST REASON FOR EXAM: Male, 79 years old. Mental status changes. Weakness. Hyperglycemia. RADIATION DOSAGE (If Supplied By Facility): CTDIvol = ( 44.99 ) mGy, DLP = ( 796.11 ) mGycm TECHNIQUE: Transaxial CT imaging of the brain was performed without administration of intravenous contrast material. Individualized dose optimization techniques were used for this CT. COMPARISON: Comparison is made with prior study dated June 28, 2017. FINDINGS: Normal soft tissue structures. Normal calvarium. There is moderate cerebral atrophy with widening of the extra-axial spaces and ventricular dilatation. There are areas of decreased attenuation within the white matter tracts of the supratentorial brain, consistent with microvascular disease changes. Lacunar infarcts seen in both basal ganglia. Normal brainstem. Normal cerebellum. There is no intracranial hemorrhage. There are no findings of an acute ischemic infarction. Atherosclerotic plaque formation of the vertebral arteries and cavernous portions of the internal carotid arteries bilaterally. Opacification of the left maxillary sinus and mucosal thickening and partial opacification of the left ethmoid sinus. CT/Brain/Head without Contrast IMPRESSION: Chronic involutional changes of the brain. Electronically Signed: Kalin Davis, at 14:27 EDT , Service support ,
--- NOTE | 2019-04-02 12:50 | RAD_ITS ---
STUDY: X-RAY CHEST REASON FOR EXAM: Male, 79 years old. Weakness. Dyspnea. TECHNIQUE: Single AP portable view of the chest. COMPARISON: Comparison is made with prior study dated July 28, 2015. FINDINGS: EKG electrodes are seen. Elevation of the right hemidiaphragm. Stable mild increased markings at the right lung base suggestive of linear atelectasis. There is no demonstrated pleural abnormality. Normal size heart. Normal mediastinum and daniela. Normal visualized pulmonary arteries. There is atherosclerotic calcification of the aortic arch with tortuosity. There are diffuse degenerative changes of the visualized thoracic spine. There is degenerative osteoarthritis of the bilateral shoulders. There is no demonstrated abnormality of the visualized soft tissue structures of the upper abdomen. RAD/Chest 1 View (Portable) IMPRESSION: Stable elevation of the right hemidiaphragm with mild increased linear markings at the right lung base suggestive of atelectasis. Electronically Signed: Kalin Davis, at 13:15 EDT , Service support ,
--- NOTE | 2019-04-02 12:50 | EKG12_ITS ---
Test Reason : WEAKNESS Blood Pressure : / mmHG Vent. Rate : 063 BPM Atrial Rate : 063 BPM P-R Int : 180 ms QRS Dur : 072 ms QT Int : 428 ms P-R-T Axes : -15 000 051 degrees QTc Int : 437 ms Normal sinus rhythm Low voltage QRS Borderline ECG Confirmed by MARLY REED ([id number]), graphics editor KELSEY MCGINNIS ([id number]) on 04/04/2019 8:36:25 AM Referred By: RAHEEL Confirmed By:MARLY REED
[2019-04-02] MEDS: Ipratropium/Albuterol Sulfate 3 ML AMPUL.NEB INHALATION (13:05)
[2019-04-02] MEDS: 0.9% Normal Saline 1,000 ML 150 ML IV ×2 (13:55→17:17)
[2019-04-02 14:17] LABS: Absolute Lymphocyte Count 1.06 X10^3/ul (0.83-4.51); Absolute Neutrophil Count 3.5 X10^3/uL (2.0-7.7); Basophil# 0.01 X10^3/uL; Basophil% 0.2 % (0-1); Eosinophil# 0.34 X10^3/uL; Eosinophils% 6.1 % (0-5); Hematocrit 39.1 % (40-54); Hemoglobin 13.4 g/dl (13.0-16.5); Lymphocyte # 1.06 X10^3/ul (4.0); Mean Corp Hgb Conc 34.3 g/gl (32-36); Mean Corpuscular Hgb 30.8 pg (27.0-32.0); Mean Corpuscular Volume 89.9 fL (80-94); Mean Platelet Vol. 12.7 fl (6.2-12.0); Monocyte# 0.65 X10^3/uL; Monocyte% 11.6 % (0-10); Neutrophil # 3.52 X10^3/uL (2.7-7.7); Neutrophil % 63.1 % (47-70); Platelet Count 116 K/mm3 (150-450); RBC Distribution Width CV 12.9 % (11.6-14.6); Red Blood Count 4.35 M/mm3 (4.6-6.2); White Blood Count 5.6 K/mm3 (4.4-11.0)
[2019-04-02 14:21] LABS: Anion Gap 4 (5-15); BUN 29 mg/dL (7-18); BUN/Creat Ratio 22.5 RATIO (10-20); Calcium,Total 8.9 mg/dL (8.5-10.1); Chloride 100 mmol/L (98-107); Creatinine, Serum 1.29 mg/dL (0.70-1.30); EST Glomerular Filtration Rate 57 mL/min (>60); Est Glom Filt Rate - Afr Amer 69 mL/min (>60); Estimated Creatinine Clearance 48.73 ml/min; Glucose 247 mg/dL (74-106); POSITIVE COUNT NO; POSITIVE DIFFERENTIAL NO; POSITIVE MORPHOLOGY NO; Potassium 4.7 mmol/L (3.5-5.1); Sodium Level 136 mmol/L (136-145)
[2019-04-02 14:51] LABS: BNP,B-Type NATRIURETIC PEPTIDE 126.1 pg/mL (0-100)
--- NOTE | 2019-04-02 15:24 | PCM.HP.STD ---
Problem List (1) Seizure disorder Status: Acute (2) Diabetes mellitus type 2 in nonobese Status: Chronic (3) CVA (cerebral vascular accident) Status: Chronic Qualifiers: CVA mechanism: unspecified Qualified Code(s): I63.9 - Cerebral infarction, unspecified History of Present Illness Date of Admission: 04/02/19 Chief Complaint: Generalised weakness, unresponsiveness - 1 day The patient is a 79 year old M past medical history of strokes, possible seizure disorder, who lives at home with the , ambulates with a mechanical chair, nonverbal, who was brought in with an episode of unresponsiveness. Patient was assisted to the bathroom, and was in the bathroom patient was said to have rolled his eyes and was unresponsive. His said this is usually the case when he has episodes of cough. He usually has bowel sounds cough and manuela his eyes and will be unresponsive for a little bit. No incontinence of urine or stool. No other symptoms noticed. His also complains of bilateral eye discharge which leaves his eyelids matted. His blood sugars have been running in the 400s, was 443 this morning. Also the ED show temperature of 90 7.8F, heart rate was 73, blood pressure 113/65, respiratory rate was 18. His admitting blood work showed WBC count of 5.6, hemoglobin 13.4, platelet count was 116, sodium 136, potassium 4.7, chloride 100, bicarbonate 32, BUN 29, creatinine 1.29, BNP was 126.1, UA was still pending at time of exam CT of the head showed chronic ambulatory changes. Chest X-ray shows stable elevation of the right hemidiaphragm with mild markings suggestive of atelectasis Past Medical History Past Medical History (Chronic Problems): Chronic Problems (Last Reviewed 07/28/18 @ 16:25 by Berhane Ortega DO) CVA (cerebral vascular accident) (Chronic) Diabetes mellitus type 2 in nonobese (Chronic) Diabetes mellitus type 2 in nonobese (Chronic) Stroke (Chronic) Peripheral vascular disease (Chronic) Medical History: Medical History (Last Reviewed 07/28/18 @ 16:25 by Berhane Ortega DO) Feeding by G-tube Z93.1 Hyperlipidemia E78.5 Neuropathy G62.9 Nonverbal R47.01 Prostate cancer C61 Skin cancer C44.90 Stroke I63.9 x 3 Type 2 diabetes mellitus E11.9 Dx : 1986 Last exacerbation : DKA : never Hypoglycemic episode : years ago ER visit : years ago Vision problems H54.7 HTN (hypertension) I10 Allergies sulfamethoxazole [From Bactrim] Allergy (Verified 04/02/19 12:00) Other trimethoprim [From Bactrim] Allergy (Verified 04/02/19 12:00) Other adhesive tape Adverse Reaction (Verified 04/02/19 12:00) Rash Home Medications: Ambulatory Orders Medication Instructions Recorded Lovastatin [Mevacor] 10 mg GT QHS 03/26/14 calcium carbonate 500 mg (1,250 1 tab GT BID 07/23/18 mg)-vitamin D3 200 unit tablet lisinopril 5 mg tablet 5 mg GT DAILY 07/23/18 metformin 500 mg tablet 500 mg GT DAILY tab 07/23/18 Insulin Glargine,Hum.rec.anlog 44 units SUBCUT QHS 07/28/18 [Gerber Boles] Jevity 1.5 1 bottle GT QHS 07/28/18 Metformin HCl 1,000 mg GT QHS 04/02/19 Surgical History: Surgical History (Last Reviewed 07/28/18 @ 16:25 by Berhane Ortega DO) H/O colonoscopy Z98.890 Surgical History: - - PEG tube insertion, angioplasty left leg, eye surgery secondary to diabetes Psychiatric History: No pertinent psych hx Lives: Spouse/ Significant Other Smoking Status: Never smoker Tobacco Use: Non-smoker Alcohol: None Drugs: None - *Family History Maternal Family History: Family History (Last Reviewed 07/28/18 @ 16:25 by Berhane Ortega DO) Son Hypertension Mother Tuberculosis History Items: No pertinent history Paternal Family History: Family History (Last Reviewed 07/28/18 @ 16:25 by Berhane Ortega DO) Son Hypertension Mother Tuberculosis History Items: No pertinent history Sibling Family History: Family History (Last Reviewed 07/28/18 @ 16:25 by Berhane Ortega DO) Son Hypertension Mother Tuberculosis History Items: No pertinent history Offspring Family History: Family History (Last Reviewed 07/28/18 @ 16:25 by Berhane Ortega DO) Son Hypertension Mother Tuberculosis History Items: Hypertension Review of Systems Unable to obtain accurate/complete ROS d/t: Unable to obtain an accurate ROS on account of patient being nonverbal VTE Information - Inpt Only VTE Present on Admission: No VTE Pharm Prophylaxis ordered?: Yes Patient Problems: Active and Suspected Problems (Last Reviewed 07/28/18 @ 16:25 by Berhane Ortega DO) Seizure disorder (Acute) - Physical Exam General: Alert, Oriented x3, Cooperative, No apparent distress, - - non-verbal HEENT: Atraumatic, PERRLA, EOMI, Normocephalic Oral: Moist Mucosa Neck: Supple Lungs: Normal air movement, Diminished - at the lung bases Cardiovascular: Regular rate, Regular Rhythm, Normal S1, Normal S2, No murmurs Abdomen: Bowel Sounds Present, Soft, Non Tender, Non-Distended, No Hepato-splenomegaly Extremities: No edema Skin: No rashes, No breakdown Musculoskeletal: No Tenderness to Palpation of Joints or Extremities Lymphatic: No Cervical, Supraclavicular, or Inguinal Adenopathy Neurological: Cranial nerves II-XII grossly intact, Neuro grossly intact Psych/Mental Status: Normal Affect, Appropriate Vital Signs Temp Pulse Resp BP Pulse Ox 97.8 F 66 18 152/79 H 95 04/02/19 12:01 04/02/19 14:00 04/02/19 14:00 04/02/19 14:00 04/02/19 14:00 Oxygen Delivery Method Room Air Weight: 94.1 kg Body Mass Index (BMI) 29.7 Finger Stick Blood Glucose 229 Laboratory Tests Past 24 Hrs 04/02/19 04/02/19 04/02/19 12:35 12:35 12:35 WBC 5.6 RBC 4.35 L Hgb 13.4 Hct 39.1 L MCV 89.9 MCH 30.8 MCHC 34.3 RDW 12.9 RDW Differential 42.0 Plt Count 116 L MPV 12.7 H Immature Gran % (Auto) 0.000 Neut % (Auto) 63.1 Lymph % (Auto) 19.0 Eddy % (Auto) 11.6 H Eos % (Auto) 6.1 H Baso % (Auto) 0.2 Absolute Neuts (auto) 3.5 Absolute Lymphs (auto) 1.06 Total Counted Not Reportable Sodium 136 Potassium 4.7 Chloride 100 Carbon Dioxide 32.0 Anion Gap 4 L BUN 29 H Creatinine 1.29 Estim Creat Clear Calc 48.73 Est GFR (MDRD) Af Amer 69 Est GFR (MDRD) Non-Af 57 L BUN/Creatinine Ratio 22.5 H Glucose 247 H Calcium 8.9 Troponin I < 0.015 B-Natriuretic Peptide 126.1 H POC Glucose 04/02/19 12:43 POC Glucose 229 H Assessment/Plan All Active Problems (Last Reviewed 07/28/18 @ 16:25 by Berhane Ortega, ) Failure to thrive (Acute) Seizure disorder (Acute) Hematochezia (Acute) medical management (Acute) 79 year old M past medical history of strokes, possible seizure disorder, who lives at home with the , ambulates with a mechanical chair, nonverbal, who was brought in with an episode of unresponsiveness. 1. Episodes of unresponsive secondary to possible complex seizures, per history from , sometimes related to coughing episodes Plan: Admit to PCU, neurology consult, EEG, monitor on telemetry. 2. Hyperglycemia, in a known type II DM, on insulin and metformin, will hold metformin, continue to monitor on home insulin 3. History of recurrent CVA, not on aspirin or Plavix, unclear etiology 4. Debility related to #3, PT and OT to evaluate and treat 5. Hypertension, uncontrolled, lisinopril 5mg, would add hydralazine as needed and continue to monitor May need to increase lisinopril if patient's BP remains elevated 6. Dysphagia secondary to #3, on tube feeds, presidential support specialist consulted 7. DVt PPx- Heparin SC Code Visit Inpatient E&M: 19758 Init Hosp L3
--- NOTE | 2019-04-02 15:35 | ED.DCSUM_ITS ---
- ER Visit Summary Date of Service: 04/02/19 Chief Complaint: [Mental status change and weakness] History of Present Illness: The patient is a 79 M [presents the emergency department with his via EMS. called EMS this morning when patient could not get up off a stool in the bathroom. Patient was taken in there to be bathe. states that he became completely unresponsive to her although he did not fall off the stool. She did not witness any seizure activity. also gives history that intermittently patient will have episodes where he becomes somewhat tonic in his eyes, low back in his head but there is no seizure-like activity however he is unresponsive for minutes at a time. Patient has a remote history of seizures but not currently on any seizure medication. Patient does have history of prior stroke and is nonverbal. Patient also with history of diabetes, hypertension, and peripheral vascular disease. Patient has not had any recent illness. He denies any chest pain or shortness of breath. He denies any abdominal pain. He denies any back pain.] Physical Examination: [HEENT-PERRLA, EOMI. Cranial nerves II through XII grossly intact. TMs clear. Mucous membranes moist. No adenopathy. Cardiovascular-regular rate and rhythm without murmur or ectopy Lungs-clear to auscultation, chest wall stable without crepitus or subcu emphysema Abdomen-normoactive bowel sounds, soft, nontender, no rebound or rigidity, no peritoneal signs. Patient does have a feeding tube in place. Extremities-intact ?4, normal range of motion, normal pulses, atraumatic] Test Results: [EKG obtained on arrival showed a sinus rhythm with a ventricular rate of 63 bpm with no acute I segment changes. CBC with differential of 5.6, hemoglobin 13, hematocrit 39, platelets 116. Chemistries unremarkable. BUN was 29 and creatinine 1.29. Troponin less than 0.015. BNP was 126.] Emergency Department Course and Treatment: [Patient was given normal saline 1 the department.] Treatment Plan: [Admit for further work-up and evaluation of the symptomatology. concerned that patient might be having seizures and was requesting evaluation by neurologist. It is possible patient may be having absence type seizure activity. Cannot rule out TIA.] Disposition: [Admit] Impression: [Mental status change-intermittent Generalized weakness] This note was generated with [employer] dictation software. It may contain incorrect words, spelling, and punctuation that were not noted in review of the chart prior to signing ED Disposition - Plan for ED Patient: Referrals: Peyman Rene III, MD [Primary Care Provider] -
[2019-04-02 17:15] LABS: Bedside Glucose 174 mg/dL (70-110)
[2019-04-02] MEDS: Insulin Lispro 100 UNIT/ML INSULN.PEN SQ (17:25)
[2019-04-02 18:21] LABS: Bacteria 0 SEEN /hpf (None Seen); Mucous, Urine 0 SEEN /hpf (<or=2+); Red Blood Cells-Urine 0 SEEN /hpf (0-5); Squamous Epithelial Cells - UA 0 SEEN /hpf (0-5); White Blood Cells 0 SEEN /hpf (0-5)
[2019-04-02 18:54] LABS: Color, Urine Straw (Yellow); Glucose, Dipstick Normal (Normal); Ketone-Dipstick Negative (Negative); Leukocyte Esterase-Dipstick Negative /ul (Negative); Nitrite-Dipstick Negative (Negative); Occult Blood-Urine Negative /ul (Negative); Protein-Dipstick Negative (Negative); Urine Bilirubin Dipstick Negative (Negative); Urine Clarity Clear (Clear); Urine Urobilinogen Normal (Normal)
[2019-04-02] MEDS: Jevity 1.5 1,000 ML 80 ML GT (20:38)
[2019-04-02] MEDS: Tobramycin Sulf 0.3% 5ML OPTH.BTL 1 DRP EACH EYE (21:07)
[2019-04-02] MEDS: Atorvastatin Calcium 10 MG Tablet 5 MG GT (21:09)
[2019-04-02] MEDS: Heparin Injection (Vial) 5,000 UNIT/ML VIAL 5000 UNIT SC (21:09)
[2019-04-02 22:31] LABS: Bedside Glucose 109 mg/dL (70-110)
[2019-04-03 02:01] VITALS: PULSE 68
[2019-04-03] MEDS: 0.9% Normal Saline 1,000 ML 100 ML IV ×2 (04:30→11:13)
[2019-04-03 04:50] VITALS: BP 153/72; PULSE 69; RESP 16; TEMP 36.7; O2SAT 95
[2019-04-03 06:09] LABS: Absolute Lymphocyte Count 1.17 X10^3/ul (0.83-4.51); Absolute Neutrophil Count 3.3 X10^3/uL (2.0-7.7); Basophil# 0.02 X10^3/uL; Basophil% 0.4 % (0-1); Eosinophil# 0.35 X10^3/uL; Eosinophils% 6.5 % (0-5); Hematocrit 37.1 % (40-54); Hemoglobin 12.5 g/dl (13.0-16.5); Lymphocyte # 1.17 X10^3/ul (4.0); Lymphocyte % 21.8 % (19-41); Mean Corp Hgb Conc 33.7 g/gl (32-36); Mean Corpuscular Volume 89.2 fL (80-94); Mean Platelet Vol. 12.5 fl (6.2-12.0); Monocyte# 0.56 X10^3/uL; Monocyte% 10.4 % (0-10); Neutrophil # 3.26 X10^3/uL (2.7-7.7); Neutrophil % 60.7 % (47-70); Platelet Count 102 K/mm3 (150-450); RBC Distribution Width CV 12.8 % (11.6-14.6); RBC Distribution Width SD 40.7 fl (35.1-43.9); Red Blood Count 4.16 M/mm3 (4.6-6.2); White Blood Count 5.4 K/mm3 (4.4-11.0)
[2019-04-03 06:10] LABS: POSITIVE COUNT NO; POSITIVE DIFFERENTIAL NO; POSITIVE MORPHOLOGY NO
[2019-04-03] MEDS: Heparin Injection (Vial) 5,000 UNIT/ML VIAL 5000 UNIT SC ×2 (06:20→13:03)
[2019-04-03 06:24] LABS: ALB/GLOB Ratio 0.7 RATIO (0.9-2.4); AST(SGOT) 18 U/L (15-37); Alanine Aminotransfer ALT/SGPT 24 U/L (16-61); Albumin, Serum 2.6 g/dL (3.2-5.0); Alkaline Phosphatase 121 U/L (45-117); Anion Gap 7 (5-15); BUN 24 mg/dL (7-18); BUN/Creat Ratio 21.8 RATIO (10-20); Calcium,Total 8.3 mg/dL (8.5-10.1); Chloride 108 mmol/L (98-107); EST Glomerular Filtration Rate 69 mL/min (>60); Est Glom Filt Rate - Afr Amer 83 mL/min (>60); Estimated Creatinine Clearance 57.15 ml/min; Globulin 3.7 g/dL (2.2-4.2); Glucose 209 mg/dL (74-106); Potassium 4.1 mmol/L (3.5-5.1); Protein, Total 6.3 g/dL (6.4-8.2); Sodium Level 141 mmol/L (136-145)
[2019-04-03 06:35] LABS: Bedside Glucose 272 mg/dL (70-110)
[2019-04-03] MEDS: Insulin Lispro 100 UNIT/ML INSULN.PEN SQ ×2 (06:36→10:50)
[2019-04-03 07:00] VITALS: PULSE 69
[2019-04-03 07:10] LABS: Hemoglobin A1c 7.8 % (4.2-6.3)
--- NOTE | 2019-04-03 07:28 | CPS ---
SMI HELD...PT UNAVAILABLE...EEG
--- NOTE | 2019-04-03 09:55 | NS ---
Recommend continue home tube feeds- Jevity 1.5 at 80mL/hour for 15 hours/day w/ 150 mL H2O flush every 4 hours to provide 1800 calories, 76.56 g protein, and 1812 mL total fluid per day. If elevated blood glucose unable to be managed via changes in medication, pt may benefit from formula change to Glucerna 1.5. Would continue Glucerna 1.5 at current rate as tolerated- 80mL/hour for 15 hours w/ 150mL flush every 4 hours to provide 1800 calories, 99 g protein, and 1810mL total fluid/day. Lizbeth Arroyo MS, RDN, LD
[2019-04-03 10:25] VITALS: BP 153/70; PULSE 64; RESP 12; TEMP 36.5; O2SAT 92
--- NOTE | 2019-04-03 10:34 | CON.PCM_ITS ---
Reason for Consult Date of Consultation: 04/03/19 Reason for Consultation: unresponsiveness History of Present Illness: The patient is a 79 year old M presented after unresponsive episode after a shower yesterday, now back to normal per . describes frequent episodes of cough syncope, but yesterdays episode was not associated with coughing. reports sx of a cold recently. also noted high blood sugars yesterday. no new meds except metformin was increased. Per admit note: The patient is a 79 year old M past medical history of strokes, possible seizure disorder, who lives at home with the , ambulates with a mechanical chair, nonverbal, who was brought in with an episode of unresponsiveness. Patient was assisted to the bathroom, and was in the bathroom patient was said to have rolled his eyes and was unresponsive. His said this is usually the case when he has episodes of cough. He usually has bowel sounds cough and manuela his eyes and will be unresponsive for a little bit. No incontinence of urine or stool. No other symptoms noticed. His also complains of bilateral eye discharge which leaves his eyelids matted. His blood sugars have been running in the 400s, was 443 this morning. Also the ED show temperature of 90 7.8F, heart rate was 73, blood pressure 113/65, respiratory rate was 18. His admitting blood work showed WBC count of 5.6, hemoglobin 13.4, platelet count was 116, sodium 136, potassium 4.7, chloride 100, bicarbonate 32, BUN 29, creatinine 1.29, BNP was 126.1, UA was still pending at time of exam CT of the head showed chronic ambulatory changes. Chest X-ray shows stable elevation of the right hemidiaphragm with mild markings suggestive of atelectasis Past Medical History Past Medical History (Chronic Problems): Chronic Problems (Last Reviewed 07/28/18 @ 16:25 by Berhane Ortega DO) CVA (cerebral vascular accident) (Chronic) Diabetes mellitus type 2 in nonobese (Chronic) Diabetes mellitus type 2 in nonobese (Chronic) Stroke (Chronic) Peripheral vascular disease (Chronic) Medical History: Medical History (Last Reviewed 07/28/18 @ 16:25 by Berhane Ortega DO) Feeding by G-tube Z93.1 Hyperlipidemia E78.5 Neuropathy G62.9 Nonverbal R47.01 Prostate cancer C61 Skin cancer C44.90 Stroke I63.9 x 3 Type 2 diabetes mellitus E11.9 Dx : 1987 Last exacerbation : DKA : never Hypoglycemic episode : years ago ER visit : years ago Vision problems H54.7 HTN (hypertension) I10 Allergies sulfamethoxazole [From Bactrim] Allergy (Verified 04/02/19 12:00) Other trimethoprim [From Bactrim] Allergy (Verified 04/02/19 12:00) Other adhesive tape Adverse Reaction (Verified 04/02/19 12:00) Rash Home Medications: Ambulatory Orders Medication Instructions Recorded Lovastatin [Mevacor] 10 mg GT QHS 03/26/14 calcium carbonate 500 mg (1,250 1 tab GT BID 07/23/18 mg)-vitamin D3 200 unit tablet lisinopril 5 mg tablet 5 mg GT DAILY 07/23/18 metformin 500 mg tablet 500 mg GT DAILY tab 07/23/18 Insulin Glargine,Hum.rec.anlog 44 units SUBCUT QHS 07/28/18 [Gerber Boles] Jevity 1.5 1 bottle GT QHS 07/28/18 Metformin HCl 1,000 mg GT QHS 04/02/19 Surgical History: Surgical History (Last Reviewed 07/28/18 @ 16:25 by Berhane Ortega DO) H/O colonoscopy Z98.890 Surgical History: - - PEG tube insertion, angioplasty left leg, eye surgery secondary to diabetes Psychiatric History: No pertinent psych hx Lives: Spouse/ Significant Other Smoking Status: Never smoker Tobacco Use: Non-smoker Alcohol: None Drugs: None - *Family History Offspring Family History: Family History (Last Reviewed 07/28/18 @ 16:25 by Berhane Ortega DO) Son Hypertension Mother Tuberculosis History Items: Hypertension Maternal Family History: Family History (Last Reviewed 07/28/18 @ 16:25 by Berhane Ortega DO) Son Hypertension Mother Tuberculosis History Items: No pertinent history Paternal Family History: Family History (Last Reviewed 07/28/18 @ 16:25 by Berhane Ortega DO) Son Hypertension Mother Tuberculosis History Items: No pertinent history Sibling Family History: Family History (Last Reviewed 07/28/18 @ 16:25 by Berhane Ortega DO) Son Hypertension Mother Tuberculosis History Items: No pertinent history Review of Systems Constitutional: Denies: Chills, Fever, Weight Change HEENT: Denies: Head Aches, Sinus Congestion, Sinus Drainage Cardiovascular: Denies: Chest Pain, Palpitations Respiratory: Denies: Cough, Shortness of breath at rest, Sputum production Gastrointestinal: Denies: Abdominal Pain, Nausea, Vomiting Genitourinary: Denies: Dysuria Musculoskeletal: Denies: Joint Pain, Joint Tenderness Skin: Denies: Rash, Wounds Neurological: Denies: Numbness, Tingling, Focal weakness Psychiatric: Denies: Anxiety, Depression, Homicidal Ideations, Suicidal Ideations Hematologic/ Lymphatic: Denies: Easy Bruising, Easy Bleeding Patient Problems: Active and Suspected Problems (Last Reviewed 07/28/18 @ 16:25 by Berhane Ortega DO) Seizure disorder (Acute) Objective: moans, nonverbal follows simple commands symmetric facial movements no tongue ecchymosis moves all ext right > left - Physical Exam Vital Signs Temp Pulse Resp BP Pulse Ox 36.7 C 69 16 153/72 H 95 04/03/19 04:50 04/03/19 07:00 04/03/19 04:50 04/03/19 04:50 04/03/19 04:50 Oxygen Delivery Method Room Air Weight: 93.4 kg Body Mass Index (BMI) 28.5 Finger Stick Blood Glucose 229 Intake and Output for Last 24 Hours 04/01/19 04/02/19 04/03/19 23:59 23:59 23:59 Intake Total 2154 / 2154 Balance 2154 / 2154 Laboratory Tests Past 24 Hrs 04/02/19 04/02/19 04/02/19 12:35 12:35 12:35 WBC 5.6 RBC 4.35 L Hgb 13.4 Hct 39.1 L MCV 89.9 MCH 30.8 MCHC 34.3 RDW 12.9 RDW Differential 42.0 Plt Count 116 L MPV 12.7 H Immature Gran % (Auto) 0.000 Neut % (Auto) 63.1 Lymph % (Auto) 19.0 Tift % (Auto) 11.6 H Eos % (Auto) 6.1 H Baso % (Auto) 0.2 Absolute Neuts (auto) 3.5 Absolute Lymphs (auto) 1.06 Total Counted Not Reportable Sodium 136 Potassium 4.7 Chloride 100 Carbon Dioxide 32.0 Anion Gap 4 L BUN 29 H Creatinine 1.29 Estim Creat Clear Calc 48.73 Est GFR (MDRD) Af Amer 69 Est GFR (MDRD) Non-Af 57 L BUN/Creatinine Ratio 22.5 H Glucose 247 H Hemoglobin A1c Calcium 8.9 Total Bilirubin AST ALT Alkaline Phosphatase Troponin I < 0.015 B-Natriuretic Peptide 126.1 H Total Protein Albumin Globulin Albumin/Globulin Ratio Urine Color Urine Clarity Urine pH Ur Specific [place] Urine Protein Urine Glucose (UA) Urine Ketones Urine Occult Blood Urine Nitrite Urine Bilirubin Urine Urobilinogen Ur Leukocyte Esterase Urine RBC Urine WBC Ur Squamous Epith Cells Urine Bacteria Urine Mucus 04/02/19 04/03/19 04/03/19 18:10 05:24 05:24 WBC 5.4 RBC 4.16 L Hgb 12.5 L Hct 37.1 L MCV 89.2 MCH 30.0 MCHC 33.7 RDW 12.8 RDW Differential 40.7 Plt Count 102 L MPV 12.5 H Immature Gran % (Auto) 0.200 Neut % (Auto) 60.7 Lymph % (Auto) 21.8 Tift % (Auto) 10.4 H Eos % (Auto) 6.5 H Baso % (Auto) 0.4 Absolute Neuts (auto) 3.3 Absolute Lymphs (auto) 1.17 Total Counted Not Reportable Sodium 141 Potassium 4.1 Chloride 108 H Carbon Dioxide 26.0 Anion Gap 7 BUN 24 H Creatinine 1.10 Estim Creat Clear Calc 57.15 Est GFR (MDRD) Af Amer 83 Est GFR (MDRD) Non-Af 69 BUN/Creatinine Ratio 21.8 H Glucose 209 H Hemoglobin A1c Calcium 8.3 L Total Bilirubin 0.40 AST 18 ALT 24 Alkaline Phosphatase 121 H Troponin I B-Natriuretic Peptide Total Protein 6.3 L Albumin 2.6 L Globulin 3.7 Albumin/Globulin Ratio 0.7 L Urine Color Straw Urine Clarity Clear Urine pH 8.0 Ur Specific [place] 1.010 Urine Protein Negative Urine Glucose (UA) Normal Urine Ketones Negative Urine Occult Blood Negative Urine Nitrite Negative Urine Bilirubin Negative Urine Urobilinogen Normal Ur Leukocyte Esterase Negative Urine RBC 0 SEEN Urine WBC 0 SEEN Ur Squamous Epith Cells 0 SEEN Urine Bacteria 0 SEEN Urine Mucus 0 SEEN 04/03/19 05:24 WBC RBC Hgb Hct MCV MCH MCHC RDW RDW Differential Plt Count MPV Immature Gran % (Auto) Neut % (Auto) Lymph % (Auto) Tift % (Auto) Eos % (Auto) Baso % (Auto) Absolute Neuts (auto) Absolute Lymphs (auto) Total Counted Sodium Potassium Chloride Carbon Dioxide Anion Gap BUN Creatinine Estim Creat Clear Calc Est GFR (MDRD) Af Amer Est GFR (MDRD) Non-Af BUN/Creatinine Ratio Glucose Hemoglobin A1c 7.8 H Calcium Total Bilirubin AST ALT Alkaline Phosphatase Troponin I B-Natriuretic Peptide Total Protein Albumin Globulin Albumin/Globulin Ratio Urine Color Urine Clarity Urine pH Ur Specific [place] Urine Protein Urine Glucose (UA) Urine Ketones Urine Occult Blood Urine Nitrite Urine Bilirubin Urine Urobilinogen Ur Leukocyte Esterase Urine RBC Urine WBC Ur Squamous Epith Cells Urine Bacteria Urine Mucus POC Glucose 04/03/19 04/02/19 04/02/19 06:22 21:06 17:13 POC Glucose 272 H 109 174 H 04/02/19 12:43 POC Glucose 229 H Current Medications Generic Name Dose Route Start Last Admin Trade Name Freq PRN Reason Stop Dose Admin Acetaminophen 650 mg 04/02/19 16:44 Tylenol PO Q6H PRN PRN Mild pain 1-3/Temp > 100.7 F Aspirin 81 mg 04/03/19 08:00 04/03/19 10:37 Aspirin, Baby GT 81 mg QODAY@0800 [facility] Administration Atorvastatin Calcium 5 mg 04/02/19 22:00 04/02/19 21:09 Lipitor GT 5 mg QHS LU[facility] Administration Calcium/Vitamin D 1 tablet 04/03/19 08:00 04/03/19 10:37 Os-Ricky 500mg + D GT 1 tablet BIDCM [facility] Administration Dextrose 0 gm 04/02/19 16:44 D50w Syringe IV X1 PRN Hypoglycemia Protocol Glucagon 1 mg 04/02/19 16:44 IM .X1 PRN Hypoglycemia Heparin Sodium (Porcine) 5,000 unit 04/02/19 22:00 04/03/19 06:20 Heparin Na SC 5,000 unit Q8 [facility] Administration Hydralazine HCl 5 mg 04/02/19 18:30 Apresoline Iv IV Q6H PRN PRN BLOOD PRESSURE Enteral Nutritional Formula 1,000 mls @ 80 mls/hr 04/02/19 20:00 04/02/19 20:38 Jevity 1.5 GT 80 mls/hr DAILY@2000 [facility] Administration Insulin Glargine 44 units 04/02/19 22:00 04/02/19 21:08 Lantus ([facility]) SC Not Given QHS [facility] Insulin Human Lispro 0 unit 04/02/19 16:44 04/03/19 10:50 Humalog Kwikpen ([facility]) SQ 2 units ACHS [facility] Administration Protocol Lisinopril 5 mg 04/03/19 10:00 04/03/19 10:37 Zestril GT 5 mg DAILY [facility] Administration Ondansetron HCl 4 mg 04/02/19 16:44 Zofran IV Q8H PRN PRN NAUSEA/VOMITING Sodium Chloride 5 - 15 ml 04/02/19 18:30 IV UD PRN SALINE FLUSH Tobramycin Sulfate 1 drop 04/02/19 22:00 04/03/19 10:38 Tobrex EACH EYE 04/09/19 22:01 1 drop 4X/DAY LU[facility] Administration Current Home Med List Medication Instructions Recorded Confirmed Type Lovastatin [Mevacor] 10 mg GT QHS 03/26/14 04/02/19 History calcium carbonate 500 mg (1,250 1 tab GT BID 07/23/18 04/02/19 History mg)-vitamin D3 200 unit tablet lisinopril 5 mg tablet 5 mg GT DAILY 07/23/18 04/02/19 History metformin 500 mg tablet 500 mg GT DAILY tab 07/23/18 04/02/19 History Insulin Glargine,Hum.rec.anlog 44 units SUBCUT QHS 07/28/18 04/02/19 History [Gerber Boles] Jevity 1.5 1 bottle GT QHS 07/28/18 04/02/19 History Metformin HCl 1,000 mg GT QHS 04/02/19 04/02/19 History eeg normal, reviewed Assessment/Plan All Active Problems (Last Reviewed 07/28/18 @ 16:25 by Berhane Ortega DO) Failure to thrive (Acute) Seizure disorder (Acute) Hematochezia (Acute) medical management (Acute) syncope vs sz, favor syncope, agree with bp management mri brain
--- NOTE | 2019-04-03 10:34 | EEG ---
- Electroencephalogram This is an 18 channel electroencephalogram performed on this 79-year-old male who presented with an episode of unresponsiveness. The procedure was performed utilizing the International 10-20 electrode placement protocol as well as EKG monitoring. Broadened activity is 8 Hz symmetrically in the posterior leads. The patient did not follow commands and was not able to cooperate with hyperventilation. There is frequent muscle artifact throughout the recording however the background activity appears to be a maintained 8 Hz activity in the posterior leads. The patient remained awake throughout the recording without lateralizing or epileptiform changes. EKG is normal sinus rhythm throughout the recording. Impression: Normal awake electroencephalogram
[2019-04-03] MEDS: Lisinopril 5 MG Tablet GT (10:37)
[2019-04-03] MEDS: Calcium Carb/Vitamin D 1 TABLET Tablet GT (10:37)
[2019-04-03] MEDS: Aspirin 81 MG TAB.CHEW GT (10:37)
[2019-04-03] MEDS: Tobramycin Sulf 0.3% 5ML OPTH.BTL 1 DRP EACH EYE ×2 (10:38→13:02)
[2019-04-03 11:16] LABS: Bedside Glucose 237 mg/dL (70-110)
--- NOTE | 2019-04-03 11:28 | MRI_ITS ---
STUDY: MRI BRAIN WITH AND WITHOUT CONTRAST REASON FOR EXAM: Male, 79 years old. Syncope versus seizure, unresponsive TECHNIQUE: Standardized multiplanar fat and water weighted pulse sequences were obtained. 18 IV Dotarem was administered for the contrast portion of the examination. COMPARISON: CT 04/02/2019 FINDINGS: Normal size of the ventricles and extra-axial spaces for the patient's age. There are multiple white matter hyperintensities, distributed throughout the deep white matter tracts of the cerebral hemispheres, consistent with moderate chronic white matter ischemic changes. Remote infarcts in the bilateral lawler radiata. Normal bilateral basal ganglia. Normal thalami. There is no extra-axial fluid accumulation. Normal flow voids within the major intracranial circulation suggesting patency by spin echo criteria. Normal venous enhancement. There is no enhancing intra-axial or extra-axial abnormality. Normal sella turcica, pituitary gland, infundibular stalk, optic chiasm and hypothalamus. Normal tectal plate and pineal gland. There are chronic white matter ischemic changes of the rodolfo. The midbrain and medulla are otherwise normal. Remote infarct in the left cerebellum. Normal basal cisterns. Normal bilateral temporal bones. Normal bilateral internal auditory canals. Left lens replacement. Left ethmoid and maxillary sinus disease. Normal calvarium and skull base. Normal visualized soft tissue structures. Normal visualized upper cervical spine. MRI/Brain W/WO Contrast IMPRESSION: No evidence of acute infarct or hemorrhage. Multiple remote infarcts as described. Moderate microangiopathic white matter disease. Electronically Signed: Dat Canales MD at 13:28 EDT Tel , Service support ,
--- NOTE | 2019-04-03 12:17 | PCM.PN.HOSP ---
Patient Problems: Active and Suspected Problems (Last Reviewed 07/28/18 @ 16:25 by Berhane Ortega DO) Seizure disorder (Acute) Subjective: Patient seen and examined. He was admitted with complaint of unresponsive episode and is been managed for possible seizures. Neurology is on board. Patient is nonverbal but able to nod or shake in his head in response to questions. He denied any fever chills, lightheadedness or dizziness, palpitations, chest pain, diarrhea vomiting. Review of systems is otherwise negative. Labs and vitals reviewed. Vitals/I&O's: Vital Signs Temp Pulse Resp BP Pulse Ox 97.7 F L 64 12 153/70 H 92 04/03/19 10:25 04/03/19 10:25 04/03/19 10:25 04/03/19 10:25 04/03/19 10:25 Oxygen Delivery Method Room Air Weight: 205 lb 14.588 oz Body Mass Index (BMI) 28.5 Finger Stick Blood Glucose 229 Intake and Output for Last 24 Hours 04/01/19 04/02/19 04/03/19 23:59 23:59 23:59 Intake Total 3631 / 3631 Balance 3631 / 3631 General: Alert, Cooperative, No apparent distress, - - nonverbal HEENT: Atraumatic, PERRLA, EOMI, Normocephalic Oral: Dry Mucosa Neck: Supple, No JVD, Negative Carotid Bruits Lungs: Clear to auscultation, Normal air movement, No rhonchi, No wheeze, No rales Cardiovascular: Regular rate, Regular Rhythm, Normal S1, Normal S2, No murmurs Abdomen: Bowel Sounds Present, Soft, Non Tender, Non-Distended, No Hepato-splenomegaly, - - has PEG tube Extremities: No clubbing, No cyanosis, No edema, Capillary Refill Less than 3 Seconds Skin: No rashes, No breakdown Musculoskeletal: No Tenderness to Palpation of Joints or Extremities Lymphatic: No Cervical, Supraclavicular, or Inguinal Adenopathy Neurological: Cranial nerves II-XII grossly intact, Neuro grossly intact, - - nonverbal Psych/Mental Status: Normal Affect Laboratory Results 04/02/19 12:35: WBC 5.6, RBC 4.35 L, Hgb 13.4, Hct 39.1 L, MCV 89.9, MCH 30.8, MCHC 34.3, RDW 12.9, RDW Differential 42.0, Plt Count 116 L, MPV 12.7 H, Immature Gran % (Auto) 0.000, Neut % (Auto) 63.1, Lymph % (Auto) 19.0, [place] % (Auto) 11.6 H, Eos % (Auto) 6.1 H, Baso % (Auto) 0.2, Absolute Neuts (auto) 3.5, Absolute Lymphs (auto) 1.06, Total Counted Not Reportable 04/02/19 12:35: Sodium 136, Potassium 4.7, Chloride 100, Carbon Dioxide 32.0, Anion Gap 4 L, BUN 29 H, Creatinine 1.29, Estim Creat Clear Calc 48.73, Est GFR (MDRD) Af Amer 69, Est GFR (MDRD) Non-Af 57 L, BUN/Creatinine Ratio 22.5 H, Glucose 247 H, Calcium 8.9, Troponin I < 0.015 04/02/19 12:35: B-Natriuretic Peptide 126.1 H 04/02/19 12:43: POC Glucose 229 H 04/02/19 17:13: POC Glucose 174 H 04/02/19 18:10: Urine Color Straw, Urine Clarity Clear, Urine pH 8.0, Ur Specific [place] 1.010, Urine Protein Negative, Urine Glucose (UA) Normal, Urine Ketones Negative, Urine Occult Blood Negative, Urine Nitrite Negative, Urine Bilirubin Negative, Urine Urobilinogen Normal, Ur Leukocyte Esterase Negative, Urine RBC 0 SEEN, Urine WBC 0 SEEN, Ur Squamous Epith Cells 0 SEEN, Urine Bacteria 0 SEEN, Urine Mucus 0 SEEN 04/02/19 21:06: POC Glucose 109 04/03/19 05:24: Sodium 141, Potassium 4.1, Chloride 108 H, Carbon Dioxide 26.0, Anion Gap 7, BUN 24 H, Creatinine 1.10, Estim Creat Clear Calc 57.15, Est GFR (MDRD) Af Amer 83, Est GFR (MDRD) Non-Af 69, BUN/Creatinine Ratio 21.8 H, Glucose 209 H, Calcium 8.3 L, Total Bilirubin 0.40, AST 18, ALT 24, Alkaline Phosphatase 121 H, Total Protein 6.3 L, Albumin 2.6 L, Globulin 3.7, Albumin/Globulin Ratio 0.7 L 04/03/19 05:24: WBC 5.4, RBC 4.16 L, Hgb 12.5 L, Hct 37.1 L, MCV 89.2, MCH 30.0, MCHC 33.7, RDW 12.8, RDW Differential 40.7, Plt Count 102 L, MPV 12.5 H, Immature Gran % (Auto) 0.200, Neut % (Auto) 60.7, Lymph % (Auto) 21.8, [place] % (Auto) 10.4 H, Eos % (Auto) 6.5 H, Baso % (Auto) 0.4, Absolute Neuts (auto) 3.3, Absolute Lymphs (auto) 1.17, Total Counted Not Reportable 04/03/19 05:24: Hemoglobin A1c 7.8 H 04/03/19 06:22: POC Glucose 272 H 04/03/19 10:46: POC Glucose 237 H Diagnostic Data Brain CT 04/02/19 12:50 IMPRESSION: Chronic involutional changes of the brain. Electronically Signed: Kalin Davis, at 14:27 EDT , Service support , Chest X-Ray 04/02/19 12:50 IMPRESSION: Stable elevation of the right hemidiaphragm with mild increased linear markings at the right lung base suggestive of atelectasis. Electronically Signed: Kalin Davis, at 13:15 EDT , Service support , Current Medications Acetaminophen (Tylenol) 650 mg PO Q6H PRN PRN PRN Reason: Mild pain 1-3/Temp > 100.7 F Aspirin (Aspirin, Baby) 81 mg GT QODAY@0800 [facility] Last Admin: 04/03/19 10:37 Dose: 81 mg Atorvastatin Calcium (Lipitor) 5 mg GT QHS [facility] Last Admin: 04/02/19 21:09 Dose: 5 mg Calcium/Vitamin D (Os-Ricky 500mg + D) 1 tablet GT BIDCM [facility] Last Admin: 04/03/19 10:37 Dose: 1 tablet Dextrose (D50w Syringe) 0 gm IV X1 PRN; Protocol PRN Reason: Hypoglycemia Glucagon () 1 mg IM .X1 PRN PRN Reason: Hypoglycemia Heparin Sodium (Porcine) (Heparin Na) 5,000 unit SC Q8 [facility] Last Admin: 04/03/19 06:20 Dose: 5,000 unit Hydralazine HCl (Apresoline Iv) 5 mg IV Q6H PRN PRN PRN Reason: BLOOD PRESSURE Enteral Nutritional Formula (Jevity 1.5) 1,000 mls @ 80 mls/hr GT DAILY@1999 [facility] Last Admin: 04/02/19 20:38 Dose: 80 mls/hr Insulin Glargine (Lantus (Bkc)) 44 units SC QHS [facility] Last Admin: 04/02/19 21:08 Dose: Not Given Insulin Human Lispro (Humalog Kwikpen (Bk)) 0 unit SQ ACHS [facility]; Protocol Last Admin: 04/03/19 10:50 Dose: 2 units Lisinopril (Zestril) 5 mg GT DAILY [facility] Last Admin: 04/03/19 10:37 Dose: 5 mg Ondansetron HCl (Zofran) 4 mg IV Q8H PRN PRN PRN Reason: NAUSEA/VOMITING Sodium Chloride () 5 - 15 ml IV UD PRN PRN Reason: SALINE FLUSH Tobramycin Sulfate (Tobrex) 1 drop EACH EYE 4X/DAY [facility] Stop: 04/09/19 22:01 Last Admin: 04/03/19 10:38 Dose: 1 drop Medical Necessity - Tobacco Use Smoking Status: Never smoker Tobacco Use: Non-smoker Assessment/Plan All Active Problems (Last Reviewed 07/28/18 @ 16:25 by Berhane Ortega DO) Failure to thrive (Acute) Seizure disorder (Acute) Hematochezia (Acute) medical management (Acute) 1. Syncopal episode vs possible complex seizures had an episode of syncope at home. had EEG this [facility] showed normal awake EEG neurology on board for MRI of brain today seizure precautions 2/ History of recurrent CVA: on aspirin 81mg daily. on high intensity statin. 3. Debility due to recurrent CVAs: patient currently nonverbal. PT/OT on board. 4. Hypertension: on lisinopril. IV hydralazine PRN. 5. Diabetes mellitus: A1c is 8.6. Insulin Lantus 44 units nightly. Insulin sliding scale. Accuchecks ACHS Metformin currently on hold. 6. Dysphagia secondary to recurrent strokes: On tube feeding with Jevity. Nutrition on board. 7. Elevated BP, no diagnosis of hypertension: DVT prophylaxis: Heparin Code Visit OBSV E&M: [id number] Subsequent observation care L3
--- NOTE | 2019-04-03 12:21 | PN_ITS ---
Patient Problems: Active and Suspected Problems (Last Reviewed 07/28/18 @ 16:25 by Berhane Ortega DO) Seizure disorder (Acute) Subjective: Patient seen and examined. He was admitted with complaint of unresponsive episode and is been managed for possible seizures. Neurology is on board. Patient is nonverbal but able to nod or shake in his head in response to questions. He denied any fever chills, lightheadedness or dizziness, palpitations, chest pain, diarrhea vomiting. Review of systems is otherwise negative. Labs and vitals reviewed. Vitals/I&O's: Vital Signs Temp Pulse Resp BP Pulse Ox 97.7 F L 64 12 153/70 H 92 04/03/19 10:25 04/03/19 10:25 04/03/19 10:25 04/03/19 10:25 04/03/19 10:25 Oxygen Delivery Method Room Air Weight: 205 lb 14.588 oz Body Mass Index (BMI) 28.5 Finger Stick Blood Glucose 229 Intake and Output for Last 24 Hours 04/01/19 04/02/19 04/03/19 23:59 23:59 23:59 Intake Total 3631 / 3631 Balance 3631 / 3631 General: Alert, Cooperative, No apparent distress, - - nonverbal HEENT: Atraumatic, PERRLA, EOMI, Normocephalic Oral: Dry Mucosa Neck: Supple, No JVD, Negative Carotid Bruits Lungs: Clear to auscultation, Normal air movement, No rhonchi, No wheeze, No rales Cardiovascular: Regular rate, Regular Rhythm, Normal S1, Normal S2, No murmurs Abdomen: Bowel Sounds Present, Soft, Non Tender, Non-Distended, No Hepato- splenomegaly, - - has PEG tube Extremities: No clubbing, No cyanosis, No edema, Capillary Refill Less than 3 Seconds Skin: No rashes, No breakdown Musculoskeletal: No Tenderness to Palpation of Joints or Extremities Lymphatic: No Cervical, Supraclavicular, or Inguinal Adenopathy Neurological: Cranial nerves II-XII grossly intact, Neuro grossly intact, - - nonverbal Psych/Mental Status: Normal Affect Laboratory Results 04/02/19 12:35: WBC 5.6, RBC 4.35 L, Hgb 13.4, Hct 39.1 L, MCV 89.9, MCH 30.8, MCHC 34.3, RDW 12.9, RDW Differential 42.0, Plt Count 116 L, MPV 12.7 H, Immature Gran % (Auto) 0.000, Neut % (Auto) 63.1, Lymph % (Auto) 19.0, [place] % (Auto) 11.6 H, Eos % (Auto) 6.1 H, Baso % (Auto) 0.2, Absolute Neuts (auto) 3.5, Absolute Lymphs (auto) 1.06, Total Counted Not Reportable 04/02/19 12:35: Sodium 136, Potassium 4.7, Chloride 100, Carbon Dioxide 32.0, Anion Gap 4 L, BUN 29 H, Creatinine 1.29, Estim Creat Clear Calc 48.73, Est GFR (MDRD) Af Amer 69, Est GFR (MDRD) Non-Af 57 L, BUN/Creatinine Ratio 22.5 H, Glucose 247 H, Calcium 8.9, Troponin I < 0.015 04/02/19 12:35: B-Natriuretic Peptide 126.1 H 04/02/19 12:43: POC Glucose 229 H 04/02/19 17:13: POC Glucose 174 H 04/02/19 18:10: Urine Color Straw, Urine Clarity Clear, Urine pH 8.0, Ur Specific [place] 1.010, Urine Protein Negative, Urine Glucose (UA) Normal, Urine Ketones Negative, Urine Occult Blood Negative, Urine Nitrite Negative, Urine Bilirubin Negative, Urine Urobilinogen Normal, Ur Leukocyte Esterase Negative, Urine RBC 0 SEEN, Urine WBC 0 SEEN, Ur Squamous Epith Cells 0 SEEN, Urine Bacteria 0 SEEN, Urine Mucus 0 SEEN 04/02/19 21:06: POC Glucose 109 04/03/19 05:24: Sodium 141, Potassium 4.1, Chloride 108 H, Carbon Dioxide 26.0, Anion Gap 7, BUN 24 H, Creatinine 1.10, Estim Creat Clear Calc 57.15, Est GFR (MDRD) Af Amer 83, Est GFR (MDRD) Non-Af 69, BUN/Creatinine Ratio 21.8 H, Glucose 209 H, Calcium 8.3 L, Total Bilirubin 0.40, AST 18, ALT 24, Alkaline Phosphatase 121 H, Total Protein 6.3 L, Albumin 2.6 L, Globulin 3.7, Albumin/Globulin Ratio 0.7 L 04/03/19 05:24: WBC 5.4, RBC 4.16 L, Hgb 12.5 L, Hct 37.1 L, MCV 89.2, MCH 30.0, MCHC 33.7, RDW 12.8, RDW Differential 40.7, Plt Count 102 L, MPV 12.5 H, Immature Gran % (Auto) 0.200, Neut % (Auto) 60.7, Lymph % (Auto) 21.8, [place] % (Auto) 10.4 H, Eos % (Auto) 6.5 H, Baso % (Auto) 0.4, Absolute Neuts (auto) 3.3, Absolute Lymphs (auto) 1.17, Total Counted Not Reportable 04/03/19 05:24: Hemoglobin A1c 7.8 H 04/03/19 06:22: POC Glucose 272 H 04/03/19 10:46: POC Glucose 237 H Diagnostic Data Brain CT 04/02/19 12:50 IMPRESSION: Chronic involutional changes of the brain. Electronically Signed: Kalin Davis, at 14:27 EDT , Service support , Chest X-Ray 04/02/19 12:50 IMPRESSION: Stable elevation of the right hemidiaphragm with mild increased linear markings at the right lung base suggestive of atelectasis. Electronically Signed: Kalin Davis, at 13:15 EDT , Service support , Current Medications Acetaminophen (Tylenol) 650 mg PO Q6H PRN PRN PRN Reason: Mild pain 1-3/Temp > 100.7 F Aspirin (Aspirin, Baby) 81 mg GT QODAY@0800 [facility] Last Admin: 04/03/19 10:37 Dose: 81 mg Atorvastatin Calcium (Lipitor) 5 mg GT QHS [facility] Last Admin: 04/02/19 21:09 Dose: 5 mg Calcium/Vitamin D (Os-Ricky 500mg + D) 1 tablet GT BIDCM [facility] Last Admin: 04/03/19 10:37 Dose: 1 tablet Dextrose (D50w Syringe) 0 gm IV X1 PRN; Protocol PRN Reason: Hypoglycemia Glucagon () 1 mg IM .X1 PRN PRN Reason: Hypoglycemia Heparin Sodium (Porcine) (Heparin Na) 5,000 unit SC Q8 [facility] Last Admin: 04/03/19 06:20 Dose: 5,000 unit Hydralazine HCl (Apresoline Iv) 5 mg IV Q6H PRN PRN PRN Reason: BLOOD PRESSURE Enteral Nutritional Formula (Jevity 1.5) 1,000 mls @ 80 mls/hr GT DAILY@1999 [facility] Last Admin: 04/02/19 20:38 Dose: 80 mls/hr Insulin Glargine (Lantus (Bk)) 44 units SC QHS [facility] Last Admin: 04/02/19 21:08 Dose: Not Given Insulin Human Lispro (Humalog Kwikpen (Bk)) 0 unit SQ ACHS [facility]; Protocol Last Admin: 04/03/19 10:50 Dose: 2 units Lisinopril (Zestril) 5 mg GT DAILY [facility] Last Admin: 04/03/19 10:37 Dose: 5 mg Ondansetron HCl (Zofran) 4 mg IV Q8H PRN PRN PRN Reason: NAUSEA/VOMITING Sodium Chloride () 5 - 15 ml IV UD PRN PRN Reason: SALINE FLUSH Tobramycin Sulfate (Tobrex) 1 drop EACH EYE 4X/DAY [facility] Stop: 04/09/19 22:01 Last Admin: 04/03/19 10:38 Dose: 1 drop Medical Necessity - Tobacco Use Smoking Status: Never smoker Tobacco Use: Non-smoker Assessment/Plan All Active Problems (Last Reviewed 07/28/18 @ 16:25 by Berhane Ortega DO) Failure to thrive (Acute) Seizure disorder (Acute) Hematochezia (Acute) medical management (Acute) 1. Syncopal episode vs possible complex seizures * had an episode of syncope at home. * had EEG this morning [facility] showed normal awake EEG * neurology on board * for MRI of brain today * seizure precautions * 2/ History of recurrent CVA: on aspirin 81mg daily. on high intensity statin. 3. Debility due to recurrent CVAs: patient currently nonverbal. PT/OT on board. 4. Hypertension: on lisinopril. IV hydralazine PRN. 5. Diabetes mellitus: A1c is 8.6. Insulin Lantus 44 units nightly. Insulin sliding scale. Accuchecks ACHS Metformin currently on hold. 6. Dysphagia secondary to recurrent strokes: On tube feeding with Jevity. Nutrition on board. 7. Elevated BP, no diagnosis of hypertension: DVT prophylaxis: Heparin Code Visit OBSV E&M: 77267 Subsequent observation care L3
--- NOTE | 2019-04-03 14:49 | CASEMGMT ---
LAURIE BANKS NOTE: To room to review MANTILLA form with d/t pt is non-verbal. not currently in room and per LAURIE Hauser, left to go home and was not planning on returning to [facility] for a couple hours. Call placed to pt's , Samantha, to discuss MANTILLA form via phone. No answer. Message left for to return call to [employer] CM, Sharon Waterman. Phone number provided. Lizet BARRY RN, CM
[2019-04-03 15:00] VITALS: PULSE 64
--- NOTE | 2019-04-03 15:24 | CASEMGMT ---
Pt's at bedside. This RN CM to room with MANTILLA form at this time, explanation done- voices understanding, and signs MANTILLA form at this time. Original to chart and copy to pt at this time. Pt/ voice/express no further questions/concerns/needs this time. SStaten RN CM
--- NOTE | 2019-04-03 15:43 | CHAPLAIN ---
Type of Pastoral Visit _x__ Initial Visit ___ Follow-up Visit ___ On-call Visit ___ General Patient Visit ___ Spiritual Assessment ___ Family Conference ___ Bereavement ___ Rapid Response ___ Code Blue ___ Other (describe below) Pastoral Care Referral From _x__ Patient ___ Family ___ Nurse ___ Physician ___ Behavior Support Specialist ___ Medical Translator ___ Other (describe below) Sacrament/Intervention ___ Active listening ___ Anointing ___ Oriental Orthodox ___ Bereavement ___ Communion ___ Cristal exploration ___ _x__ Life review _x__ Prayer ___ Reconciliation ___ Sacrament of Sick _x__ Supportive presence ___ Wedding ___ Other (describe below) Pastoral Comments patient is nonverbal but his is with him and speaks about his stroke 14 years ago and how life goes for them now; pt does interact with smiles, nods, hand gestures, etc.; pt does agree to prayer support; pt does welcome yarn sizer; pt used to be active in a religion but does not attend currently due to health reasons
--- NOTE | 2019-04-03 16:14 | DCINST_ITS ---
- Discharge Diagnoses Current Active Problems: Current Active and Chronic Problems (Last Reviewed 07/28/18 @ 16:25 by Berhane Ortega DO) Seizure disorder (Acute) CVA (cerebral vascular accident) (Chronic) You will use the following diet at home:: Other - tube feeding with Jevity Discharge Activity: Return to Normal Activity Weight Bearing Status: Weight bearing as tolerated Call your doctor if you observe: Fever of 101 or Higher, Shortness of breath, Dizziness, Fainting spells Instructions: What Is Syncope?, Causes of Syncope, Treating Syncope: Prevention Allergies/Adverse Reactions: Allergies sulfamethoxazole [From Bactrim] Allergy (Verified 04/02/19 12:00) Other trimethoprim [From Bactrim] Allergy (Verified 04/02/19 12:00) Other adhesive tape Adverse Reaction (Verified 04/02/19 12:00) Rash Medications to take at Discharge Lovastatin [Mevacor] 10 mg GT QHS 03/26/14 calcium carbonate 500 mg (1,250 mg)-vitamin D3 200 unit tablet 1 tab GT BID 07/23/18 lisinopril 5 mg tablet 5 mg GT DAILY 07/23/18 metformin 500 mg tablet 500 mg GT DAILY tab 07/23/18 Insulin Glargine,Hum.rec.anlog [Toudarshan Solmally] 44 units SUBCUT QHS 07/28/18 Jevity 1.5 1 bottle GT QHS 07/28/18 Metformin HCl 1,000 mg GT QHS 04/02/19 Lisinopril [Zestril] 10 mg GT DAILY #30 tablet 04/03/19 Tobramycin Sulf 0.3% [Tobrex] 1 drop EACH EYE 4X/DAY #1 opth.btl 04/03/19 The following prescriptions were given: Lisinopril [Zestril] 10 mg GT DAILY #30 tablet Tobramycin Sulf 0.3% [Tobrex] 1 drop EACH EYE 4X/DAY #1 opth.btl Primary Care Physician: Peyman Rene III, MD [Primary Care Provider] - Please follow up with your Primary Care Physician in: one week Test Results: Test results from this visit will be discussed in further detail at your follow- up appointment, if applicable. Proposed Discharge Date: 04/03/19
--- NOTE | 2019-04-03 16:15 | PCM.DC.SUM ---
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 According to his , patient was being assisted to go to the bathroom in the bathroom he was noted to have had eye rolling and was on responsive. said it usually occurred when he had episodes of cough and bowel movements. also complained of bilateral eye discharge with left his eyes matted. Labs were essentially unremarkable and chest x-ray showed elevation of the right hemidiaphragm with mild markings suggestive of atelectasis. He was admitted and managed for syncopal episode and possible complex seizures. Neurology was consulted. Patient had EEG on 04/03/2019 which was a normal awake EEG. He also had a brain MRI which showed no acute intracranial pathology. Of note, patient's blood pressure remained elevated during admission and was hovering in the 160s and 170s systolic. According to his , patient's blood pressure is 80s systolic at home. Patient's lisinopril was therefore increased from 5 mg to 10 mg daily. Patient was also given tobramycin eyedrops to help with eye discharge. Patient remained stable and requested that he be discharged tomorrow 04/03/2019. Due to no ongoing acute medical issues, patient was discharged home on 04/03/2019. He is to follow-up with his primary care doctor and neurology. Patient seen and examined prior to discharge. He had no complaints and felt well. Patient is nonverbal but able to nod or shake in his head in response to questions. He denied any fever chills, lightheadedness or dizziness, palpitations, chest pain, diarrhea vomiting. Review of systems is otherwise negative. Labs and vitals reviewed. Home medications reviewed and reconciled. o/e: Vital Signs Height 5 ft 10.08 in Weight: 205 lb 14.588 oz Weight in Pounds 205.9 lbs Pulse Ox 93 Temperature 98.6 F Pulse Rate 75 Respiratory Rate 18 Blood Pressure 165/75 Blood Pressure Position Sitting [] General: Alert, Cooperative, No apparent distress, - - nonverbal HEENT: Atraumatic, PERRLA, EOMI, Normocephalic Oral: Dry Mucosa Neck: Supple, No JVD, Negative Carotid Bruits Lungs: Clear to auscultation, Normal air movement, No rhonchi, No wheeze, No rales Cardiovascular: Regular rate, Regular Rhythm, Normal S1, Normal S2, No murmurs Abdomen: Bowel Sounds Present, Soft, Non Tender, Non-Distended, No Hepato-splenomegaly, - - has PEG tube Extremities: No clubbing, No cyanosis, No edema, Capillary Refill Less than 3 Seconds Skin: No rashes, No breakdown Musculoskeletal: No Tenderness to Palpation of Joints or Extremities Lymphatic: No Cervical, Supraclavicular, or Inguinal Adenopathy Neurological: Cranial nerves II-XII grossly intact, Neuro grossly intact, - - nonverbal Psych/Mental Status: Normal Affect Patient's symptoms were more likely due to syncope and neurology concurred. Patient was discharged home as noted above. - Physical Exam Vital Signs Temp Pulse Resp BP Pulse Ox 97.7 F L 64 12 153/70 H 92 04/03/19 10:25 04/03/19 15:00 04/03/19 10:25 04/03/19 10:25 04/03/19 10:25 Oxygen Delivery Method Room Air Weight: 205 lb 14.588 oz Body Mass Index (BMI) 28.5 Finger Stick Blood Glucose 229 Intake and Output for Last 24 Hours 04/01/19 04/02/19 04/03/19 23:59 23:59 23:59 Intake Total 3631 / 3631 Balance 3631 / 3631 Laboratory Tests Past 24 Hrs 04/02/19 04/03/19 04/03/19 18:10 05:24 05:24 WBC 5.4 RBC 4.16 L Hgb 12.5 L Hct 37.1 L MCV 89.2 MCH 30.0 MCHC 33.7 RDW 12.8 RDW Differential 40.7 Plt Count 102 L MPV 12.5 H Immature Gran % (Auto) 0.200 Neut % (Auto) 60.7 Lymph % (Auto) 21.8 [place] % (Auto) 10.4 H Eos % (Auto) 6.5 H Baso % (Auto) 0.4 Absolute Neuts (auto) 3.3 Absolute Lymphs (auto) 1.17 Total Counted Not Reportable Sodium 141 Potassium 4.1 Chloride 108 H Carbon Dioxide 26.0 Anion Gap 7 BUN 24 H Creatinine 1.10 Estim Creat Clear Calc 57.15 Est GFR (MDRD) Af Amer 83 Est GFR (MDRD) Non-Af 69 BUN/Creatinine Ratio 21.8 H Glucose 209 H Hemoglobin A1c Calcium 8.3 L Total Bilirubin 0.40 AST 18 ALT 24 Alkaline Phosphatase 121 H Total Protein 6.3 L Albumin 2.6 L Globulin 3.7 Albumin/Globulin Ratio 0.7 L Urine Color Straw Urine Clarity Clear Urine pH 8.0 Ur Specific [place] 1.010 Urine Protein Negative Urine Glucose (UA) Normal Urine Ketones Negative Urine Occult Blood Negative Urine Nitrite Negative Urine Bilirubin Negative Urine Urobilinogen Normal Ur Leukocyte Esterase Negative Urine RBC 0 SEEN Urine WBC 0 SEEN Ur Squamous Epith Cells 0 SEEN Urine Bacteria 0 SEEN Urine Mucus 0 SEEN 04/03/19 05:24 WBC RBC Hgb Hct MCV MCH MCHC RDW RDW Differential Plt Count MPV Immature Gran % (Auto) Neut % (Auto) Lymph % (Auto) [place] % (Auto) Eos % (Auto) Baso % (Auto) Absolute Neuts (auto) Absolute Lymphs (auto) Total Counted Sodium Potassium Chloride Carbon Dioxide Anion Gap BUN Creatinine Estim Creat Clear Calc Est GFR (MDRD) Af Amer Est GFR (MDRD) Non-Af BUN/Creatinine Ratio Glucose Hemoglobin A1c 7.8 H Calcium Total Bilirubin AST ALT Alkaline Phosphatase Total Protein Albumin Globulin Albumin/Globulin Ratio Urine Color Urine Clarity Urine pH Ur Specific [place] Urine Protein Urine Glucose (UA) Urine Ketones Urine Occult Blood Urine Nitrite Urine Bilirubin Urine Urobilinogen Ur Leukocyte Esterase Urine RBC Urine WBC Ur Squamous Epith Cells Urine Bacteria Urine Mucus POC Glucose 04/03/19 04/03/19 04/02/19 10:46 06:22 21:06 POC Glucose 237 H 272 H 109 04/02/19 17:13 POC Glucose 174 H Discharge Diet: - - tube feeding via PEG tube Discharge Activity: Return to Normal Activity Weight Bearing Status: Weight bearing as tolerated Call your doctor if you observe: Fever of 101 or Higher, Shortness of breath, Dizziness, Fainting spells Home Medications: Medications to take at Discharge Lovastatin [Mevacor] 10 mg GT QHS 03/26/14 calcium carbonate 500 mg (1,250 mg)-vitamin D3 200 unit tablet 1 tab GT BID 07/23/18 lisinopril 5 mg tablet 5 mg GT DAILY 07/23/18 metformin 500 mg tablet 500 mg GT DAILY tab 07/23/18 Insulin Glargine,Hum.rec.anlog [Gerber Boles] 44 units SUBCUT QHS 07/28/18 Jevity 1.5 1 bottle GT QHS 07/28/18 Metformin HCl 1,000 mg GT QHS 04/02/19 Lisinopril [Zestril] 10 mg GT DAILY #30 tablet 04/03/19 Tobramycin Sulf 0.3% [Tobrex] 1 drop EACH EYE 4X/DAY #1 opth.btl 04/03/19 Following Prescrptions Were Given to Patient: Lisinopril [Zestril] 10 mg GT DAILY #30 tablet Tobramycin Sulf 0.3% [Tobrex] 1 drop EACH EYE 4X/DAY #1 opth.btl Primary Care Physician: Peyman Rene III, MD [Primary Care Provider] - Please follow up with your Primary Care Physician in: one week Patient Instructions: What Is Syncope?, Causes of Syncope, Treating Syncope: Prevention Disposition: Home Minutes spent on discharge:: 45 Patient Condition:: Stable Medical Necessity - Tobacco Use Smoking Status: Never smoker Tobacco Use: Non-smoker Meaningful Use Info Meaningful Use Diagnoses (Choose all that apply): None applicable Code Visit Inpatient E&M: 23348 Disch Hosp
[2019-04-03 16:32] VITALS: BP 165/75; PULSE 75; RESP 18; TEMP 37; O2SAT 93
== END 2019-04-03 16:12 | disposition home or self-care (01) ==
LOC: ED 14:13 → PCU 15:54
PROVIDERS: Admitting Provider Internal Medicine; Emergency Provider Emergency Medicine; Family Provider Family Medicine; PCP Family Medicine; Visit Provider Student in an Organized Health Care Education/Training Program
DX: R55 Syncope and collapse (principal); G40.909 Epilepsy, unspecified, not intractable, without status epilepticus; E11.51 Type 2 diabetes mellitus with diabetic peripheral angiopathy without gangrene; E78.5 Hyperlipidemia, unspecified; I10 Essential (primary) hypertension; E11.40 Type 2 diabetes mellitus with diabetic neuropathy, unspecified; E11.65 Type 2 diabetes mellitus with hyperglycemia; R13.10 Dysphagia, unspecified; Z79.899 Other long term (current) drug therapy; Z79.4 Long term (current) use of insulin; Z85.46 Personal history of malignant neoplasm of prostate; Z85.828 Personal history of other malignant neoplasm of skin; R05 Cough
CPT/HCPCS: 36415; 70450; 70553; 71045; 80048; 80053; 81001; 82962; 83036; 83880; 84484; 85025; 93005; 94640; 95819; 96360; 96361; 96372; 97162; 97166; 97802; 99218; 99285; A9575; J7030; A4216; G0378

== ENCOUNTER 2019-04-04 23:58 | Emergency (ER) | payer MEDICARE, SELFPAY ==
[2019-04-02 16:37] VITALS: BMI 28.5
[2019-04-04 23:59] VITALS: BP 155/68; PULSE 73; RESP 16; TEMP 36.7; O2SAT 98; BMI 27.2
[2019-04-05 00:35] LABS: Bedside Glucose 277 mg/dL (70-110)
--- NOTE | 2019-04-05 00:38 | ED.DEP ---
ED Disposition - Plan for ED Patient: Instructions: ED Hyperglycemia Diabetic Referrals: Peyman Rene III, MD [Primary Care Provider] -
--- NOTE | 2019-04-05 00:45 | ED.DCSUM_ITS ---
- ER Visit Summary Date of Service: 04/05/19 Chief Complaint: Elevated blood sugar History of Present Illness: The patient is a 79 M presenting with elevated blood sugar. states his blood sugar was running high in the 300s tonight at home. He typically takes Toujeo at night. He was supposed to take 45 units tonight. She ran out and was only able to give him 31 units. He has a feeding tube that runs throughout the night. She was concerned if she waited until the morning to get his insulin it would be higher in the morning. Denies any complaints. Physical Examination: Vitals are stable. Patient is afebrile. Alert no acute distress. HEENT exam is unremarkable. Neck is supple. Lungs are clear and equal bilaterally. Heart is regular rate and rhythm. Abdomen is soft nontender nondistended. Extremities are unremarkable. Skin is warm and dry. No focal neurologic deficit. Remainder of exam is unremarkable. Emergency Department Course and Treatment: BGT 277. Patient given Lantus 15 units. Advised to follow-up with his primary care physician. Advised return to ED if worsening complaints. Disposition: Discharge home Impression: Hyperglycemia This note was generated with [employer]SongTo[employer] dictation software. It may contain incorrect words, spelling, and punctuation that were not noted in review of the chart prior to signing ED Disposition - Plan for ED Patient: Instructions: ED Hyperglycemia Diabetic Referrals: Peyman Rene III, MD [Primary Care Provider] -
== END 2019-04-05 00:53 | disposition home or self-care (01) ==
LOC: ED 04-05 00:19
PROVIDERS: Emergency Provider Emergency Medicine; Family Provider Family Medicine; PCP Family Medicine
DX: E11.65 Type 2 diabetes mellitus with hyperglycemia (principal); I10 Essential (primary) hypertension; E78.00 Pure hypercholesterolemia, unspecified; Z86.73 Personal history of transient ischemic attack (TIA), and cerebral infarction without residual deficits; Z79.4 Long term (current) use of insulin; Z85.46 Personal history of malignant neoplasm of prostate
CPT/HCPCS: 82962; 99282

== ENCOUNTER 2019-04-09 09:38 | Emergency (ER) | payer MEDICARE, SELFPAY ==
[2019-04-09 09:40] VITALS: BP 125/63; PULSE 73; RESP 18; TEMP 36.9; O2SAT 99; BMI 27.2
--- NOTE | 2019-04-09 09:52 | ED.DCSUM_ITS ---
History of Present Illness Chief Complaint: Other, Pain/Inj Informant: Significant Other Onset: Today - Exact time unknown Context: Sudden Onset Timing: Continuous Quality: Patient noted feeding tube out this morning. Location: Left upper quadrant Current Severity: Moderate Maximum Severity: Moderate Worsened by: Tube out for several hours Relieved by: Nothing Associated Symptoms: Expressive aphasia unable to determine Narrative: Feeding tube placed by Dr. Mccabe. History limited because patient has of expressive aphasia. History provided by Prior similar symptoms: Yes Recent Illness/Hospitalization: Yes - Past Medical History (1) Failure to thrive Status: Acute (2) Seizure disorder Status: Acute (3) CVA (cerebral vascular accident) Status: Chronic (4) Diabetes mellitus type 2 in nonobese Status: Chronic (5) Peripheral vascular disease Status: Chronic Past Medical History - Allergies and Home Meds Allergies/Adverse Reactions: Allergies sulfamethoxazole [From Bactrim] Allergy (Verified 04/09/19 09:39) Other trimethoprim [From Bactrim] Allergy (Verified 04/09/19 09:39) Other adhesive tape Adverse Reaction (Verified 04/09/19 09:39) Rash Primary Care Physician: Peyman Rene III, MD [Primary Care Provider] - Anshul Mccabe MD [STAFF PHYSICIAN] - As Needed Prior records reviewed: Yes - History of prostate cancer and skin cancer Surgical History: - - PEG tube insertion, angioplasty left leg, eye surgery secondary to diabetes Lives: Spouse/ Significant Other Smoking Status: Never smoker Alcohol: None - Family History Offspring Family History: Family History (Last Reviewed 07/28/18 @ 16:25 by Berhane Ortega DO) Son Hypertension Mother Tuberculosis Family History: Reports: Hypertension Maternal Family History: Family History (Last Reviewed 07/28/18 @ 16:25 by Berhane Ortega DO) Son Hypertension Mother Tuberculosis Family History: Reports: No pertinent history Paternal Family History: Family History (Last Reviewed 07/28/18 @ 16:25 by Berhane Ortega DO) Son Hypertension Mother Tuberculosis Family History: Reports: No pertinent history Sibling Family History: Family History (Last Reviewed 07/28/18 @ 16:25 by Berhane Ortega DO) Son Hypertension Mother Tuberculosis Family History: Reports: No pertinent history Review of Systems ROS: Unable to Obtain Physical Exam Vital Signs/Narrative: Vital Signs Temp Pulse Resp BP Pulse Ox 04/09/19 09:40 98.4 F 73 18 125/63 H 99 Inital Vital Signs reviewed: Yes General: Well nourished, Well developed, No Acute Distress Head: Normocephalic, Atraumatic Eyes: Perrl, EOMI. Negative for: Pale conjunctiva, Scleral icterus, - ENT: Moist mucous membranes, No rhinorrhea, TM's clear, - - Patient drooling. 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 Rectal: Deferred Extremities: Nontender, Edema Skin: Normal color, No rash Neurological: Alert, - - Able to determine Psychological: Normal affect Diagnostic/Tx/Re-eval - Medical Decision Making We will need to reinsert new feeding tube. Since the tract is almost closed ure thral sounds were ordered to dilate tract and place a 20 [place] SILAS tube. Please read procedure note Procedures Procedure(s): The tract was dilated using urethral sounds. Dilated up to a 24 [place] urethral sound. 20 [place] SILAS tube was placed without difficulty. Gastric contents noted in tube. ED Disposition - Plan for ED Patient: Disposition: Home or Assisted Living Diagnosis: Dislodged gastrostomy tube Instructions: ED G Tube Replacement Referrals: Peyman Rene III, MD [Primary Care Provider] - Anshul Mccabe MD [STAFF PHYSICIAN] - As Needed
== END 2019-04-09 10:30 | disposition home or self-care (01) ==
PROVIDERS: Emergency Provider Emergency Medicine; Family Provider Family Medicine; PCP Family Medicine
DX: Z43.1 Encounter for attention to gastrostomy (principal); R47.01 Aphasia; R62.7 Adult failure to thrive; G40.909 Epilepsy, unspecified, not intractable, without status epilepticus; E11.51 Type 2 diabetes mellitus with diabetic peripheral angiopathy without gangrene; Z85.46 Personal history of malignant neoplasm of prostate; Z85.828 Personal history of other malignant neoplasm of skin; Z86.73 Personal history of transient ischemic attack (TIA), and cerebral infarction without residual deficits; Z79.4 Long term (current) use of insulin; Z79.84 Long term (current) use of oral hypoglycemic drugs; Z79.899 Other long term (current) drug therapy
CPT/HCPCS: 99282

== ENCOUNTER 2019-10-16 09:47 | Emergency (ER) | payer MEDICARE, SELFPAY ==
[2019-10-16 09:49] VITALS: BP 144/69; PULSE 76; RESP 17; TEMP 36.1; O2SAT 95; BMI 27.6
--- NOTE | 2019-10-16 10:17 | RAD_ITS ---
STUDY: X-RAY - ABDOMEN/PELVIS REASON FOR EXAM: Male, 79 years old. PEG tube placement. TECHNIQUE: Single AP view of the abdomen / pelvis. COMPARISON: Comparison is made with prior examination dated January 20, 2018. FINDINGS: Contrast was injected into the PEG tube. The PEG tube is seen within the distal portion of the stomach. RAD/Abdomen Single View IMPRESSION: The PEG tube is in the distal portion of the stomach. Electronically Signed: Kalin Davis, at 11:15 EST , Service support ,
--- NOTE | 2019-10-16 10:18 | ED.VISSUMM ---
- ER Visit Summary Date of Service: 10/16/19 Chief Complaint: PEG tube came out History of Present Illness: The patient is a 79 M 3 of strokes, diabetes, hypertension, prostate cancer. Patient has a chronic PEG tube that is been in since 2005 due to aspiration. He takes nothing by mouth. He is cared for at home by his . She states sometime during the night his PEG tube came out. This is happened before. Most recently has had this replaced around March. At the original PEG tube was placed in 2005. She denies other complaints except a recent cough for which she would like me to get an x-ray for. Physical Examination: Elderly male vital signs are stable. He is afebrile. He is in no distress. H EENT exam his eyes are open. He does not speak. Neck nontender. Lungs is a few scattered wheezes which she states is his baseline. Heart is regular rhythm rate about 75 no murmur. Chest was nontender. Abdomen is soft. Nontender. Nondistended. Normal bowel sounds no peritoneal signs. He has a feeding tube ostomy hole in his left upper quadrant. There is no bleeding. Patient is moving all 4 extremities. Neurologically his eyes are open he is awake. He is not speaking. Test Results: One-shot KUB was performed after that PEG tube was placed and shows within the stomach in appropriate position. Patient's asked me to get a chest x-ray on the patient because of his recent URI type symptoms. A single shot portable x-ray was obtained that was negative. Emergency Department Course and Treatment: PEG tube was placed. The balloon was inflated with 6 cc of water. Patient tolerated procedure well. Gastric contents did seem to come up through the tube also showing that was an appropriate placement. Treatment Plan: Follow-up with your doctor as needed. Disposition: Discharge Impression: Replaced PEG tube after came out by ER physician Acute bronchitis This note was generated with [employer] dictation software. It may contain incorrect words, spelling, and punctuation that were not noted in review of the chart prior to signing ED Disposition - Plan for ED Patient: Disposition: Home or Assisted Living Referrals: Peyman Rene III, MD [Primary Care Provider] - As Needed Additional Instructions: Follow-up as needed
--- NOTE | 2019-10-16 10:21 | ED.DEP ---
ED Disposition - Plan for ED Patient: Disposition: Home or Assisted Living Referrals: Peyman Rene III, MD [Primary Care Provider] - As Needed Additional Instructions: Follow-up as needed
--- NOTE | 2019-10-16 10:45 | RAD_ITS ---
STUDY: X-RAY CHEST REASON FOR EXAM: Male, 79 years old. Cough and chest congestion. TECHNIQUE: Single AP portable view of the chest. COMPARISON: Comparison is made with prior study April 02, 2019. FINDINGS: Elevation of the right hemidiaphragm. Minimal increased markings at the right lung base suggestive of a mild right linear atelectasis. There is no demonstrated pleural abnormality. Normal size heart. Normal mediastinum and daniela. Normal visualized pulmonary arteries. There is atherosclerotic calcification of the aortic arch with tortuosity. Normal visualized thoracic spine. There is degenerative osteoarthritis of the bilateral shoulders. There is no demonstrated abnormality of the visualized soft tissue structures of the upper abdomen. RAD/Chest 1 View (Portable) IMPRESSION: Elevation of the right hemidiaphragm with minimal right basilar atelectasis. This is unchanged. Electronically Signed: Kalin Davis, at 11:15 EST , Service support ,
[2019-10-16 11:26] VITALS: BP 134/68; PULSE 72; RESP 16; O2SAT 99
== END 2019-10-16 11:27 | disposition home or self-care (01) ==
PROVIDERS: Emergency Provider Emergency Medicine; Family Provider Family Medicine; PCP Family Medicine
DX: Z43.1 Encounter for attention to gastrostomy (principal); J20.9 Acute bronchitis, unspecified; E11.9 Type 2 diabetes mellitus without complications; I10 Essential (primary) hypertension; C61 Malignant neoplasm of prostate; Z86.73 Personal history of transient ischemic attack (TIA), and cerebral infarction without residual deficits
CPT/HCPCS: 43762; 71045; 74018; 99282